=== PATIENT | male | born 1960 | race Caucasian/White ===

== ENCOUNTER 2019-08-09 11:45 | Emergency (ER) | payer SELFPAY ==
[2019-08-09 11:47] VITALS: BP 152/78; PULSE 70; RESP 20; TEMP 36.4; O2SAT 100; BMI 22.0
[2019-08-09] MEDS: 0.9% Normal Saline 1,000 ML 999 ML IV ×2 (12:23→13:32)
[2019-08-09] MEDS: Ondansetron 4 MG/2 ML Vial IV (12:23)
--- NOTE | 2019-08-09 12:31 | ED.VIS.GEN ---
History of Present Illness Chief Complaint: Nausea/Vomiting Informant: Patient Onset: Days - 4 Narrative: Patient states I have let myself go. By this he states that his hygiene and is cleanliness with food preparation etc. has been lacking because the world needs people who do tough jobs. He also states he is dropping the junkyard dog today. He then tells me that he has had vomiting and diarrhea since Thursday. Decreased p.o. because of the same. No fevers or rashes. Past Medical History - Allergies and Home Meds Allergies/Adverse Reactions: Allergies No Known Allergies Allergy (Verified 08/09/19 11:49) Primary Care Physician: Care Physician,No Primary [Primary Care Provider] - Smoking Status: Current every day smoker Review of Systems General: Denies: Chills, Fever, Sweats Eyes: Denies: Visual changes - bilaterally, Diplopia ENT: Denies: Rhinorrhea, Sore throat Cardiovascular: Denies: Chest pain, Palpitations Respiratory: Denies: Dyspnea, Cough, Dyspnea on exertion Gastrointestinal: Reports: Nausea, Vomiting, Diarrhea. Denies: Abdominal pain, Melena, Hematochezia Genitourinary: Denies: Dysuria, Hematuria, Frequency Musculoskeletal: Denies: Back pain, Extremity Pain Skin: Denies: Rash, Wounds Neurological: Denies: Headache, Weakness, Numbness Physical Exam Vital Signs/Narrative: Vital Signs Temp Pulse Resp BP Pulse Ox 08/09/19 11:47 97.6 F L 70 20 H 152/78 H 100 Inital Vital Signs reviewed: Yes General: Well nourished, Well developed, No Acute Distress Head: Normocephalic, Atraumatic Eyes: Perrl, EOMI ENT: Moist mucous membranes, No rhinorrhea Neck: Supple, Nontender Cardiovascular: Regular rate, Regular rhythm, No murmurs Respiratory: No distress, CTA bilaterally, Chest nontender Abdomen: Soft, Nontender, Nondistended, Normal bowel sounds Back: Nontender, Normal Inspection Extremities: Nontender, No edema Skin: Normal color, No rash Neurological: Alert, Oriented x3, Cranial nerves II-XII grossly intact, Normal Strength, Normal Sensation Psychological: Normal affect, Normal Mood Diagnostic/Tx/Re-eval - Medical Decision Making 2 L of IV fluids and Phenergan. He has been tolerating p.o. He will be discharged home with prescription for Zofran instructions for Imodium and instructions for oral hydration and rest. ED Disposition - Plan for ED Patient: Disposition: Home or Assisted Living Diagnosis: Gastroenteritis Instructions: VOMITING AND DIARRHEA, Nonspecific (Adult) Prescriptions: Ondansetron [Zofran Odt] 4 mg PO Q6H PRN PRN #20 tab PRN Reason: Nausea Prescription Printed Referrals: Archie Proctor MD [STAFF PHYSICIAN] - (as needed for primary care) Additional Instructions: I would recommend Imodium as needed for diarrhea. Oral hydration. Some of these viruses can cause symptoms for up to 2 weeks.
[2019-08-09 12:37] LABS: Absolute Lymphocyte Count 1.06 X10^3/uL (0.83-4.51); Absolute Neutrophil Count 6.1 X10^3/uL (2.0-7.7); Basophil# 0.03 X10^3/uL; Basophil% 0.4 % (0-1); Differential Indicated SCAN CRITERIA MET; Eosinophil# 0.11 X10^3/uL; Eosinophils% 1.4 % (0-5); Hematocrit 44.5 % (40-54); Hemoglobin 15.4 g/dL (13.0-16.5); Lymphocyte # 1.06 X10^3/ul (4.0); Lymphocyte % 13.2 % (19-41); Mean Corp Hgb Conc 34.6 g/dL (32-36); Mean Corpuscular Hgb 29.7 pg (27.0-32.0); Mean Corpuscular Volume 85.9 fL (80-94); Mean Platelet Vol. 9.5 fl (6.2-12.0); Monocyte# 0.67 X10^3/uL; Monocyte% 8.4 % (0-10); NRBC Flagged by Analyzer 0 % (0-5); Neutrophil # 6.12 X10^3/uL (2.7-7.7); Neutrophil % 76.2 % (47-70); POSITIVE MORPHOLOGY YES; Platelet Count 204 K/mm3 (150-450); RBC Distribution Width CV 13.2 % (11.6-14.6); RBC Distribution Width SD 41.3 fl (35.1-43.9); Red Blood Count 5.18 M/mm3 (4.6-6.2)
[2019-08-09 12:55] LABS: AST(SGOT) 22 U/L (15-37); Alanine Aminotransfer ALT/SGPT 24 U/L (16-61); Albumin, Serum 3.6 g/dL (3.2-5.0); Alkaline Phosphatase 88 U/L (45-117); Anion Gap 8 (5-15); BUN 24 mg/dL (7-18); Bilirubin, Direct 0.11 mg/dL (0.00-0.30); Calcium,Total 9.4 mg/dL (8.5-10.1); Chloride 101 mmol/L (98-107); Creatinine, Serum 0.96 mg/dL (0.70-1.30); EST Glomerular Filtration Rate 86 mL/min (>60); Est Glom Filt Rate - Afr Amer 104 mL/min (>60); Estimated Creatinine Clearance 78.98 ml/min; Globulin 3.6 g/dL (2.2-4.2); Glucose 133 mg/dL (74-106); Lipase 87 U/L (73-393); Potassium 3.7 mmol/L (3.5-5.1); Protein, Total 7.2 g/dL (6.4-8.2); Sodium Level 135 mmol/L (136-145)
[2019-08-09 14:32] VITALS: BP 150/71; PULSE 65; RESP 16; O2SAT 100
== END 2019-08-09 14:35 | disposition home or self-care (01) ==
PROVIDERS: Emergency Provider Emergency Medicine
DX: K52.9 Noninfective gastroenteritis and colitis, unspecified (principal); F17.200 Nicotine dependence, unspecified, uncomplicated
CPT/HCPCS: 80048; 80076; 83690; 85025; 96361; 96374; 99283; J7030; A4216; J2405

== ENCOUNTER 2020-04-08 04:34 | Emergency (ER) | payer SELFPAY ==
[2020-04-08 04:35] VITALS: BP 155/79; PULSE 94; RESP 18; TEMP 36.2; O2SAT 97; BMI 20.7
[2020-04-08] MEDS: Fluorescein 1 MG STRIP 1 STRIP OPHTHALMIC (04:56)
[2020-04-08] MEDS: Diphth,Pertuss(Acell),Tet Vac 0.5 ML Vial IM (04:57)
[2020-04-08] MEDS: Tetracaine 0.5% Ophthalmic Bottle OPHTHALMIC (04:57)
--- NOTE | 2020-04-08 04:58 | ED.DCSUM_ITS ---
- ER Visit Summary Date of Service: 04/08/20 Chief Complaint: Foreign body left eye History of Present Illness: The patient is a 59 M with no primary care physician or a Jose Yang. 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 He had a foreign body go into his left eye. He states he has pain is 4-10 when he closes in 1 out of 10 when he opens his eye. He denies any photophobia. He denies any change in his vision. He does wear glasses and contacts. He was not wearing a shield when he was welding. He denies any pain to his right eye. His tetanus shot is not up-to-date. Physical Examination: Vitals: Stable. Afebrile. General: Well-nourished and well-developed. Left eye: Upper eyelid was everted for the exam. There is no foreign material under this. There is 2 small metallic foreign bodies with rust rings. The first of these is on the junction of his cornea and sclera medially. It is at the level of his pupil. The second is at 2:00 and is not in the visual axis. There is fluorescein dye uptake surrounding these 2. There is no other corneal abrasion. There is diffuse conjunctival injection. Head: Normocephalic atraumatic. Neck: Supple, no lymphadenopathy. No JVD. Nontender. Cardiovascular: Regular rate and rhythm. No murmurs. Respiratory: No respiratory distress. Clear to auscultation bilaterally. Abdominal: Soft, nontender, nondistended, normal bowel sounds. No guarding, rebound, or peritoneal signs. Back: Nontender. Extremities: Nontender, no edema. Skin: Normal color, no rash. Neurologic: Alert and oriented ?3. Cranial nerves II through XII are intact. Normal strength and sensation. Psych: Normal affect. Emergency Department Course and Treatment: Patient had the foreign bodies removed with a Q-tip that had been moistened with tetracaine. He tolerated this well. There were residual rust rings. He refused removal of this. He had Cipro drops placed in his eye as he does wear contacts. Treatment Plan: Patient will be discharged with Cipro drops and instructed to follow-up with Dr. Martinez in 3 to 5 days for repeat exam and removal of rust ring. Return to the emergency department for any worsening symptoms. Disposition: To home in improved and stable condition. Impression: 1. Metallic foreign bodies with rust ring to left eye. This note was generated with [employer] dictation software. It may contain incorrect words, spelling, and punctuation that were not noted in review of the chart prior to signing ED Disposition - Plan for ED Patient: Instructions: ED Foreign Body Cornea W Rust Ring Referrals: Ish Martinez MD [STAFF PHYSICIAN] - 3-5 Days
[2020-04-08] MEDS: Ciprofloxacin 0.3% 2.5ml Bottle LEFT EYE (05:15)
== END 2020-04-08 05:16 | disposition home or self-care (01) ==
LOC: ED 05:08
PROVIDERS: Emergency Provider Emergency Medicine
DX: T15.92XA Foreign body on external eye, part unspecified, left eye, initial encounter (principal); F17.200 Nicotine dependence, unspecified, uncomplicated; X58.XXXA Exposure to other specified factors, initial encounter
CPT/HCPCS: 90471; 90715; 99283

== ENCOUNTER 2020-06-29 13:13 | Emergency (ER) | payer SELFPAY ==
[2020-06-29 13:14] VITALS: BP 135/86; PULSE 114; RESP 16; TEMP 36.4; O2SAT 99; BMI 19.8
--- NOTE | 2020-06-29 13:24 | ED.DCSUM_ITS ---
History of Present Illness Onset: Yesterday Narrative: 10-year-old male presents with complaint of foreign body in his left eye. He was grinding metal last night and not wearing eye protection. He felt minor discomfort in his left eye last night that worsened today with some tearing. No vision changes. He does not wear contacts. He can see a foreign body in his iris. <Mary Contreras - Last Filed: 06/29/20 13:56> <MinhJelani - Last Filed: 06/29/20 14:00> Chief Complaint: Eye Problem Past Medical History Smoking Status: Current every day smoker <Mary Contreras - Last Filed: 06/29/20 13:56> <MinhJelani - Last Filed: 06/29/20 14:00> - Allergies and Home Meds Allergies/Adverse Reactions: Allergies No Known Allergies Allergy (Verified 06/29/20 13:16) Primary Care Physician: Dexter Randall MD [STAFF PHYSICIAN] - Review of Systems General: Denies: Chills, Fever, Sweats Eyes: Denies: Visual changes - left, Visual changes - right, Blurred vision - left, Blurred vision - right, Diplopia ENT: Denies: Rhinorrhea, Sore throat Cardiovascular: Denies: Chest pain, Palpitations Respiratory: Denies: Dyspnea, Cough, Dyspnea on exertion Skin: Denies: Rash, Wounds Neurological: Denies: Headache, Weakness <Mary Contreras - Last Filed: 06/29/20 13:56> Physical Exam Vital Signs/Narrative: Vital Signs Temp Pulse Resp BP Pulse Ox 06/29/20 13:14 97.6 F L 114 H 16 135/86 H 99 General: Well nourished, Well developed, No Acute Distress Head: Normocephalic, Atraumatic Eyes: Perrl, EOMI, - - Foreign body at 12'oclock position of iris. No rust ring. No sceral injection or chemosis. No hyphema. PERRL, EOMI, no photophobia. ENT: Moist mucous membranes, No rhinorrhea Neck: Supple, Nontender Cardiovascular: Regular rate, Regular rhythm, No murmurs Respiratory: No distress, CTA bilaterally Extremities: No edema Skin: Normal color, No rash Neurological: Alert, Oriented x3, Cranial nerves II-XII grossly intact Psychological: Normal affect, Normal Mood <Mary Contreras - Last Filed: 06/29/20 13:56> Vital Signs/Narrative: Vital Signs Temp Pulse Resp BP Pulse Ox 06/29/20 13:57 16 06/29/20 13:14 97.6 F L 114 H 16 135/86 H 99 <Jelani Wilkinson - Last Filed: 06/29/20 14:00> Diagnostic/Tx/Re-eval - Medical Decision Making Presents with a metal foreign body in his left eye after grinding metal last night. He appears well nontoxic. Vital signs within normal limits. There is a clearly visible foreign body at the 12 o'clock position of the iris. Pupils equal round reactive to light, extraocular motion intact. No chemosis, hyphema, or scleral injection. Vision changes. Tetracaine was applied and q-tip removed small part of foreign body. 18-gauge needle removed the rest. There is a small residual rust ring. The patient does not want to try to remove it and states it is not bothering him. He has topical antibiotics at home from a previous foreign body was advised to use these drops 3 times daily. He was given ophthalmology referral and discharged home in stable condition. 1. Metallic foreign body with residual rust ring, left eye 2. Corneal abrasion, left eye <Mary Contreras - Last Filed: 06/29/20 13:56> - Medical Decision Making I supervised the PA and have performed my own pertinent history and physical. Results and treatment plan were discussed. HPI: Patient reports that last night he was grinding a sword and had taken off his safety glasses for short period time when he had a foreign body enter his left eye. He denies any change in his vision. He wears glasses for driving. He does not wear contacts. 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 PE: Vitals: Stable. Afebrile. General: Well-nourished and well-developed. Head: Normocephalic atraumatic. Left eye: Metallic foreign body at approximately 6:00 that is not in the visual axis while his pupil is small. There is a rust ring surrounding this. Neck: Supple, no lymphadenopathy. No JVD. Nontender. Cardiovascular: Regular rate and rhythm. No murmurs. Respiratory: No respiratory distress. Clear to auscultation bilaterally. Abdominal: Soft, nontender, nondistended, normal bowel sounds. No guarding, rebound, or peritoneal signs. Back: Nontender. Extremities: Nontender, no edema. Skin: Normal color, no rash. Neurologic: Alert and oriented ?3. Cranial nerves II through XII are intact. Normal strength and sensation. Psych: Normal affect. Emergency Department course: Patient had the foreign body removed with an 18- gauge needle. The majority of the rust ring was removed. There is approximately 30% still present. He has refused any further attempts at removing this. Treatment Plan: Patient reports that he has antibiotic ophthalmic drops at home from the last time he had this. He is instructed to use this 3 times a day for the next 3 days. Follow-up with Dr. Randall for removal of the rust ring. Return to the emergency department for any worsening symptoms. This note was generated with [employer] dictation software. It may contain incorrect words, spelling, and punctuation that were not noted in review of the chart prior to signing. <Jelani Wilkinson - Last Filed: 06/29/20 14:00> ED Disposition <Mary Contreras - Last Filed: 06/29/20 13:56> <Jelani Wilkinson - Last Filed: 06/29/20 14:00> - Plan for ED Patient: Disposition: Home or Assisted Living Diagnosis: Eye foreign body, Corneal rust ring of left eye Instructions: ED Corneal Abrasion, ED EYE FOREIGN BODY Corneal Referrals: Dexter Randall MD [STAFF PHYSICIAN] -
[2020-06-29] MEDS: Tetracaine 0.5% Ophthalmic Bottle 2 DRP LEFT EYE (13:46)
[2020-06-29 13:57] VITALS: RESP 16
== END 2020-06-29 13:59 | disposition home or self-care (01) ==
LOC: ED 13:36
PROVIDERS: Emergency Provider Physician Assistant
DX: T15.02XA Foreign body in cornea, left eye, initial encounter (principal); F17.200 Nicotine dependence, unspecified, uncomplicated; X58.XXXA Exposure to other specified factors, initial encounter
CPT/HCPCS: 99283

== ENCOUNTER 2021-01-17 22:01 | Emergency (ER) | payer SELFPAY ==
[2021-01-17 22:01] VITALS: BP 134/90; PULSE 128; RESP 18; TEMP 36.6; O2SAT 99; BMI 18.2
--- NOTE | 2021-01-17 22:19 | EDS_ITS ---
HPI History of Present Illness HPI Narrative: 60 -year-old [id number] male tetanus is up-to-date in the last year. States he was using a grinding wheel and a piece of equipment turned on and lacerated his right ulnar side of his wrist. He has mild tingling. Denies other injuries. Patient is right-hand dominant. Chief Complaint: Laceration Informant: patient Occured/Mechanism Mechanism/Context: Yes injury Onset/Context/Timing Onset: Today and Hours Context: Sudden Onset Timing: Continuous Quality of Pain: Aching Current Severity: Mild Maximum Severity: Mild Narrative Tetanus Immunization: <5 years Prior similar symptoms: No Recent Illness/Hospitalization: No PFSH PFSH Home Medications cephalexin 500 mg PO Q8H 5 Days #15 cap 01/18/21 [Rx Last Taken Unknown] Allergy/AdvReac Type Severity Reaction Status Date / Time No Known Allergies Allergy Verified 01/17/21 22:03 Social History Smoking Status: Current every day smoker tobacco type: cigarettes ROS ROS ED ROS Narrative Denies recent illness. Review of Systems ROS Unobtainable: Denies due to encephalopathy Constitutional Constitutional ED: Denies frequent falls Eyes Eyes: Denies change in vision ENT ENT ED: Denies ear pain or sore throat Cardiovascular Cardiovascular: Denies chest pain Respiratory/Chest Respiratory/Chest: Denies cough or dyspnea Gastrointestinal Gastrointestinal: Denies abdominal pain, diarrhea, nausea or vomiting Genitourinary Genitourinary ED: Denies dysuria Musculoskeletal Musculoskeletal: Denies myalgias Integumentary Denies rash Neurologic Neurologic: Denies headache(s) Psychiatric Psychiatric: Denies depression Endocrine Endocrinology: Denies polyuria Hematologic/Lymphatic Hematologic/Lymphatic: Denies easy bruising Allergic/Immunologic Allergic/Immunologic ED: Denies urticaria EXAM Physical Exam Narrative Exam Narrative: There has been no acute distress vital signs stable afebrile. Exam unremarkable except right ulnar side of his wrist dorsal medially there is a laceration involving the skin and subcu tissue. Dirty appearing wound. He has normal flexion-extension to the wrist. He can open and close all digits of the hand. He has normal touch sensation. There is no pulsatile bleeding. No obvious foreign body. Otherwise exam unremarkable. Const Vital Signs: 01/17/21 22:01 Temperature 97.9 F Temperature Source Temporal Pulse Rate 128 H Respiratory Rate 18 Blood Pressure 134/90 H Blood Pressure Mean 104 Pulse Ox 99 Oxygen Delivery Method Room Air HEENT Reports moist mucous membranes normocephalic and atraumatic; Negative for trauma or tenderness Eyes PERRL and EOMs intact bilaterally Neck full ROM and supple Chest Wall inspection of chest normal and palpation of chest normal Resp normal respiratory effort and clear to auscultation bilaterally Cardio regular rhythm and no murmurs Rate: tachycardic GI non-tender, non-distended and no masses Auscultation: normoactive bowel sounds Palpation: soft Back/Spine no CVA tenderness Extremity Extremity Narrative: Right dorsal medial laceration of the wrist. Involving the skin and subcu tissue. He has full flexion-extension of the wrist. He is able to open close the hand. Hand appears to be neurovascularly intact with normal cap refill and touch sensation specifically over the small finger and ring finger. Neuro oriented x3 Sensorium / Orientation: alert, oriented to person, oriented to place and oriented to time Psych mental status grossly normal Skin Rashes: no rashes MDM MDM MDM Narrative Medical decision making narrative: Patient with a right wrist laceration. Will need locally anesthetized, washed out explored and closed. X-rays being obt ained. Procedures Lacerations Right ulnar side wrist laceration: Length: 3.94 in Depth: Fascia Prep: Sterile Conditions and Shure-Clens Laceration repair: Irrigated, Lidocaine, Local and Wound explored Number of Sutures/Rhonda: 8 Suture Information: Ethilon and 4-0 Comment: Irregular laceration involving the skin and subcu tissue. Also some of the fascia. However he is full flexion extension of the right wrist. Distally he has normal sensation. He can open and close his hand. Wound was locally anesthetized with lidocaine. Cleaned with Shur-Clens. Washed with saline and irrigated with saline. Explored. Closed using 8 simple interrupted 4-0 Ethilon sutures. Proper hemostasis wound closure obtained. Patient was warned of scarring and wound care. Discharge Plan Triage Chief Complaint: Laceration ED Provider: Jevon Thapa Dx/Rx/DC Orders Clinical Impression: Laceration of right wrist Instructions: ED Laceration, Hand: All Closures Prescriptions: New cephalexin 500 mg capsule 500 mg PO Q8H 5 Days Qty: 15 RF: 0 Primary Care Provider: Care Physician,No Primary Referrals: Bryan Griffith MD [STAFF PHYSICIAN] - 10-14 Days suture removal Care Physician,No Primary [Primary Care Provider] - Activity Restrictions/Additional Instructions: Clean the wound twice daily with soap and water. Apply antibiotic ointment. Ice and elevate to decrease pain and swelling. Tylenol Motrin for pain. Watch for any signs of infection such as redness, fever, red streaks or pus is seen return. Stitches should come out in 10 to 14 days. There are [address] Keep the wound clean and dry. It was a deep complex wound. I am going to put you on antibiotic Keflex 3 times a day for the next 5 days to try to prevent infection. Disposition Disposition: Home, self care
--- NOTE | 2021-01-17 22:23 | RAD_ITS ---
STUDY: X-RAY - RIGHT WRIST REASON FOR EXAM: Male, 60 years old. trauma TECHNIQUE: 3 view(s) of the wrist were obtained. COMPARISON: None. FINDINGS: Impacted fracture distal radius, age indeterminate. Avulsion fractures of the ulna styloid appear remote. Normal radiocarpal articulation. Normal distal radioulnar articulation. Normal carpal bones. Normal carpal articulations. Normal carpometacarpal articulation of the thumb. Normal second through fifth carpometacarpal articulations. Normal visualized metacarpal bones. Soft tissue swelling and skin laceration ulnar aspect of the wrist. RAD/Wrist min 3 Views IMPRESSION: Fracture distal radius, age indeterminate. Remote avulsion fracture ulnar styloid. Laceration ulnar aspect of the wrist. Electronically Signed: Ede Terry MD at 22:51 EDT , Service support ,
[2021-01-17] MEDS: Lidocaine/Epi/Tetracaine 50 ML 1 APPLIC TOPICAL (22:41)
[2021-01-18] MEDS: Lidocaine 1% (20 ml mdv) 20 ML Vial 10 ML INFILT (00:03)
[2021-01-18] MEDS: Cephalexin 250 MG Capsule 500 MG PO (00:07)
[2021-01-18 00:10] VITALS: BP 128/62; PULSE 82; RESP 18; O2SAT 96
== END 2021-01-18 00:10 | disposition home or self-care (01) ==
PROVIDERS: Emergency Provider Emergency Medicine
DX: S61.511A Laceration without foreign body of right wrist, initial encounter (principal); F17.210 Nicotine dependence, cigarettes, uncomplicated; X58.XXXA Exposure to other specified factors, initial encounter
CPT/HCPCS: 12002; 73110; 99284

== ENCOUNTER 2021-01-19 00:26 | Emergency (ER) | payer SELFPAY ==
[2021-01-19 00:27] VITALS: BP 119/78; PULSE 91; RESP 16; TEMP 36.6; O2SAT 100; BMI 19.4
--- NOTE | 2021-01-19 01:37 | EX.ED.DYSGE1 ---
HPI History of Present Illness Chief Complaint: Foreign Body Narrative Narrative: 60-year-old male presenting with left eye pain. He feels like he may have had a foreign body in it so he stuck his thumbnail and there and gauze data. He denies any visual complaints. He states that he has foreign body sensation in his left eye. He does not wear contacts. PFSH PFSH Home Medications cephalexin 500 mg PO Q8H 5 Days #15 cap 01/18/21 [Rx Last Taken Unknown] erythromycin 1 applic LEFT EYE DAILY 5 Days #3.5 g 01/19/21 [Rx Last Taken Unknown] ketorolac 1 drp EACH EYE Q6H 3 Days #5 ml 01/19/21 [Rx Last Taken Unknown] Allergy/AdvReac Type Severity Reaction Status Date / Time No Known Allergies Allergy Verified 01/17/21 22:03 Social History Smoking Status: Current every day smoker tobacco type: cigarettes ROS ROS ED Constitutional Constitutional ED: Denies chills or fever(s) Eyes Eyes: Reports other Details: Left eye pain with foreign body sensation ; Denies blurry vision or change in vision ENT ENT ED: Denies ear pain or rhinorrhea Cardiovascular Cardiovascular: Denies chest pain Respiratory/Chest Respiratory/Chest: Denies cough or dyspnea Gastrointestinal Gastrointestinal: Denies abdominal pain, nausea or vomiting Genitourinary Genitourinary ED: Denies dysuria, hematuria or urinary frequency Musculoskeletal Musculoskeletal: Denies arthralgias or myalgias Integumentary Denies abscess or rash Neurologic Neurologic: Denies headache(s) or weakness EXAM Physical Exam Const Vital Signs: 01/19/21 00:27 Temperature 98 F Temperature Source Oral Pulse Rate 91 Respiratory Rate 16 Blood Pressure 119/78 Blood Pressure Mean 91 Pulse Ox 100 Oxygen Delivery Method Room Air Positive well nourished General Appearance ED: NAD HEENT Reports moist mucous membranes Negative for trauma Eyes PERRL and EOMs intact bilaterally Eyes Narrative: With floor seen there is visualized defect at the 3 o'clock position. This does not appear to be metal as the patient thinks. It appears to be soft tissue abrasion. Resp normal respiratory effort and clear to auscultation bilaterally Cardio regular rate and regular rhythm Extremity normal to inspection General Extremety ED: Yes tenderness Neuro oriented x3 and CN's II-XII intact bilaterally Sensorium / Orientation: alert Psych mental status grossly normal Skin no rashes or lesions noted and no wounds MDM MDM MDM Narrative Medical decision making narrative: Patient has corneal abrasion in the left eye at the 3 o'clock position. Multiple times I had to tell the patient to stop rubbing his eye and he kept sticking his fingernail and tissue in his eye. I counseled him that he is good to make his abrasion worse. He started on erythromycin and given ketorolac eyedrops. He is given follow-up with ophthalmology. Impression: Corneal abrasion left eye Discharge Plan Triage Chief Complaint: Foreign Body ED Provider: [facility] Dx/Rx/DC Orders Instructions: ED Corneal Abrasion Prescriptions: New erythromycin 5 mg/gram (0.5 %) ointment 1 applic LEFT EYE DAILY 5 Days Qty: 3.5 RF: 0 ketorolac 0.4 % drops 1 drp EACH EYE Q6H 3 Days Qty: 5 RF: 0 No Action cephalexin 500 mg capsule 500 mg PO Q8H 5 Days Qty: 15 RF: 0 Primary Care Provider: Care Physician,No Primary Referrals: Dillon Cobb MD [STAFF PHYSICIAN] - As soon as possible Care Physician,No Primary [Primary Care Provider] - Disposition Disposition: Home, self care Discharge Date/Time: 01/19/21 01:55
[2021-01-19] MEDS: Tetracaine 0.5% Ophthalmic Bottle 1 DRP LEFT EYE (01:54)
[2021-01-19] MEDS: Erythromycin Base 1 OPTH.TUBE 1 APPLIC LEFT EYE (01:55)
== END 2021-01-19 01:55 | disposition home or self-care (01) ==
PROVIDERS: Emergency Provider Student in an Organized Health Care Education/Training Program
DX: S05.02XA Injury of conjunctiva and corneal abrasion without foreign body, left eye, initial encounter (principal); F17.210 Nicotine dependence, cigarettes, uncomplicated; X58.XXXA Exposure to other specified factors, initial encounter
CPT/HCPCS: 99282

== ENCOUNTER 2021-01-31 10:38 | Emergency (ER) | payer SELFPAY ==
[2021-01-31 10:39] VITALS: BP 116/80; PULSE 102; RESP 16; TEMP 36.4; O2SAT 99; BMI 19.4
--- NOTE | 2021-01-31 10:57 | EX.ED.DYSGE1 ---
HPI History of Present Illness Chief Complaint: Suture Remv Narrative Narrative: Patient is a 60-year-old male who presents to the emergency department for suture removal. He states that he injured his hand 2 weeks ago with an angle graphite grinder. 8 sutures were placed at that time. He states he has been changing the dressing and keeping the area clean. He states he does have some numbness over the area but otherwise has good function of the hand. He denies any signs of infection. No systemic symptoms. PFSH PFSH Home Medications cephalexin 500 mg PO Q8H 5 Days #15 cap 01/18/21 [Rx Last Taken Unknown] erythromycin 1 applic LEFT EYE DAILY 5 Days #3.5 g 01/19/21 [Rx Last Taken Unknown] ketorolac 1 drp EACH EYE Q6H 3 Days #5 ml 01/19/21 [Rx Last Taken Unknown] Allergy/AdvReac Type Severity Reaction Status Date / Time No Known Allergies Allergy Verified 01/31/21 10:41 Social History Smoking Status: Current every day smoker tobacco type: cigarettes ROS ROS ED Constitutional Constitutional ED: Denies chills or fever(s) ENT ENT ED: Denies rhinorrhea Cardiovascular Cardiovascular: Denies chest pain Respiratory/Chest Respiratory/Chest: Denies cough or dyspnea Gastrointestinal Gastrointestinal: Denies nausea or vomiting Musculoskeletal Musculoskeletal: Denies myalgias Integumentary Denies rash Neurologic Neurologic: Reports paresthesias; Denies weakness EXAM Physical Exam Const Vital Signs: 01/31/21 10:39 Temperature 97.6 F L Temperature Source Temporal Pulse Rate 102 H Respiratory Rate 16 Blood Pressure 116/80 Blood Pressure Mean 92 Pulse Ox 99 Oxygen Delivery Method Room Air Positive well nourished and well developed General Appearance ED: well developed HEENT Negative for trauma Eyes PERRL Neck supple Chest Wall inspection of chest normal Resp normal respiratory effort Cardio regular rate GI non-distended Extremity Extremity Narrative: 5 out of 5 muscle strength throughout. Good insurance defense paralegal strength. Neurovascular intact. General Extremety ED: Negative for edema or tenderness General Extremity: Negative for edema Skin Skin Narrative: Laceration over right wrist appears well-healed. [address] Evidence of infection. MDM MDM MDM Narrative Medical decision making narrative: Patient presents the ED for suture removal. No evidence of infection on exam. The wound is well-healed. 8 sutures were removed. He tolerated this well without any apparent complications. He is discharged home in stable condition. Discharge Plan Triage Chief Complaint: Suture Remv ED Provider: Luis Angela Dx/Rx/DC Orders Clinical Impression: Encounter for removal of sutures Instructions: ED Stitches/Staple Removal No ... Prescriptions: No Action cephalexin 500 mg capsule 500 mg PO Q8H 5 Days Qty: 15 RF: 0 erythromycin 5 mg/gram (0.5 %) ointment 1 applic LEFT EYE DAILY 5 Days Qty: 3.5 RF: 0 ketorolac 0.4 % drops 1 drp EACH EYE Q6H 3 Days Qty: 5 RF: 0 Primary Care Provider: Care Physician,No Primary Referrals: Care Physician,No Primary [Primary Care Provider] - As Needed Disposition Disposition: Home, Self Care
[2021-01-31 11:41] VITALS: RESP 16
--- NOTE | 2021-01-31 11:43 | ED.RN ---
pt standing in doorway stating I am waiting for my paperwork, and I have been waiting for over half an hour for someone to come in and get me out of here. And it's time now that I just have to go. this nurse apologized for the wait, this nurse informed pt that the ed nurses have been busy with a critical patient. pt replied i understand that but no one around here can take the 10 seconds to come in and get me out of here. this nurse again informed the pt that all the ed nurses have been tied up with more critical patients. pt off unit via ambulation steady gait. this nurse was unable to review pt's medical history with the pt or review medications. this nurse was unable to assess pt's wound.required duggan in documentation were pulled from responses on prior visit.
== END 2021-01-31 11:51 | disposition home or self-care (01) ==
LOC: ED 10:58
PROVIDERS: Emergency Provider Emergency Medicine
DX: Z48.02 Encounter for removal of sutures (principal); F17.210 Nicotine dependence, cigarettes, uncomplicated
CPT/HCPCS: 99281

== ENCOUNTER 2021-04-14 01:29 | Emergency (ER) | payer SELFPAY ==
[2021-04-14 01:30] VITALS: BP 166/81; PULSE 77; RESP 20; TEMP 36.7; BMI 18.8
[2021-04-14] MEDS: 0.9% Normal Saline 1,000 ML 999 ML IV (02:06)
[2021-04-14] MEDS: Famotidine 200 MG/20 ML MDV 20 MG in 0.9% Normal Saline (Pres. free 8 ML 300 MG IV (02:09)
[2021-04-14] MEDS: Ondansetron 4 MG/2 ML Vial IV (02:09)
[2021-04-14 02:14] LABS: Absolute Neutrophil Count 8.5 X10^3/uL (2.0-7.7); Basophil# 0.07 X10^3/uL; Basophil% 0.6 % (0-1); Hematocrit 43.9 % (40-54); Hemoglobin 15.5 g/dL (13.0-16.5); Lymphocyte % 19.3 % (19-41); Mean Corp Hgb Conc 35.3 g/dL (32-36); Mean Corpuscular Hgb 30.6 pg (27.0-32.0); Mean Corpuscular Volume 86.6 fL (80-94); Mean Platelet Vol. 9.4 fl (6.2-12.0); Monocyte# 0.97 X10^3/uL; Monocyte% 8.2 % (0-10); NRBC Flagged by Analyzer 0 % (0-5); Neutrophil # 8.52 X10^3/uL (2.7-7.7); Neutrophil % 71.6 % (47-70); Platelet Count 303 K/mm3 (150-450); RBC Distribution Width CV 13.9 % (11.6-14.6); RBC Distribution Width SD 43.8 fl (35.1-43.9); Red Blood Count 5.07 M/mm3 (4.6-6.2); White Blood Count 11.9 K/mm3 (4.4-11.0)
[2021-04-14 02:27] LABS: AST(SGOT) 20 U/L (15-37); Alanine Aminotransfer ALT/SGPT 24 U/L (16-61); Albumin, Serum 3.8 g/dL (3.2-5.0); Alkaline Phosphatase 87 U/L (45-117); Anion Gap 13 (5-15); BUN 25 mg/dL (7-18); BUN/Creat Ratio 26.6 RATIO (10-20); Bilirubin, Direct 0.14 mg/dL (0.00-0.30); Calcium,Total 9.8 mg/dL (8.5-10.1); Chloride 94 mmol/L (98-107); Creatinine, Serum 0.94 mg/dL (0.70-1.30); EST Glomerular Filtration Rate 87 mL/min (>60); Est Glom Filt Rate - Afr Amer 106 mL/min (>60); Estimated Creatinine Clearance 68.21 ml/min; Globulin 3.8 g/dL (2.2-4.2); Glucose 131 mg/dL (74-106); Lipase 176 U/L (73-393); Potassium 3.2 mmol/L (3.5-5.1); Protein, Total 7.6 g/dL (6.4-8.2); Sodium Level 135 mmol/L (136-145)
[2021-04-14 02:42] VITALS: BP 160/81; PULSE 75; RESP 20
[2021-04-14 04:00] VITALS: BP 138/76; PULSE 72; RESP 18; O2SAT 99
--- NOTE | 2021-04-14 04:23 | EX.ED.DYSGE1 ---
HPI History of Present Illness Chief Complaint: Nausea/Vomiting Narrative Narrative: Patient reports he is at 3 days of nausea and vomiting. He denies any abdominal pain associated with this or diarrhea. He denies any recent sick contacts. He states he has not been able to keep any type of food or fluid down and is worried about dehydration based on his persistent symptoms and therefore comes in for evaluation [facility] Medical History Peripheral arterial disease Home Medications cephalexin 500 mg PO Q8H 5 Days #15 cap 01/18/21 [Rx Last Taken Unknown] erythromycin 1 applic LEFT EYE DAILY 5 Days #3.5 g 01/19/21 [Rx Last Taken Unknown] ketorolac 1 drp EACH EYE Q6H 3 Days #5 ml 01/19/21 [Rx Last Taken Unknown] famotidine [Pepcid] 20 mg PO BID #60 tab 04/14/21 [Rx Last Taken Unknown] ondansetron 4 mg PO Q8H PRN #21 tab 04/14/21 [Rx Last Taken Unknown] Allergy/AdvReac Type Severity Reaction Status Date / Time No Known Allergies Allergy Verified 01/31/21 10:41 Social History Smoking Status: Current every day smoker tobacco type: cigarettes ROS ROS ED Constitutional Constitutional ED: Denies chills or fever(s) ENT ENT ED: Reports sore throat Cardiovascular Cardiovascular: Denies chest pain Respiratory/Chest Respiratory/Chest: Denies cough or dyspnea Gastrointestinal Gastrointestinal: Reports nausea and vomiting; Denies abdominal pain or diarrhea Genitourinary Genitourinary ED: Denies dysuria Musculoskeletal Musculoskeletal: Reports myalgias Integumentary Denies rash Neurologic Neurologic: Denies headache(s) Hematologic/Lymphatic Hematologic/Lymphatic: Denies easy bleeding or easy bruising EXAM Physical Exam Const Vital Signs: 04/14/21 01:30 04/14/21 02:42 Temperature 98.1 F Temperature Source Oral Pulse Rate 77 75 Respiratory Rate 20 H 20 H Blood Pressure 166/81 H 160/81 H Blood Pressure Mean 109 107 Positive well nourished and well developed General Appearance ED: well developed HEENT HEENT Narrative: Mucous membranes are dry and tacky Eyes PERRL and EOMs intact bilaterally Neck supple Neck Narrative: No crepitance noted Resp normal respiratory effort and clear to auscultation bilaterally Cardio regular rate and regular rhythm GI non-tender and non-distended GI Narrative: Bowel sounds are hyperactive. No voluntary guarding or rigidity no pulsatile mass Palpation: soft Extremity normal to inspection Neuro oriented x3 and CN's II-XII intact bilaterally Sensorium / Orientation: alert Psych mental status grossly normal Skin no rashes or lesions noted Skin Narrative: Skin turgor is increased MDM MDM MDM Narrative Medical decision making narrative: Patient afebrile with a nonsurgical abdomen. His history and exam is consistent with mild dehydration. Secondary to this I elected to perform basic laboratory studies. Labs did show changes consistent with mild dehydration but no signs of acute kidney injury secondary to this or signs of acute pancreatitis. Patient was given IV fluids IV Zofran and Pepcid and on reevaluation reported feeling much better. He also had no further episodes of vomiting. On reevaluation his abdomen also remained soft and nonsurgical still. Therefore at this time I feel patient has a viral stomach infection and as symptoms are improving with symptomatic medications he is safe for discharge Lab Data Labs: Laboratory Results - last 24 hr 04/14/21 04/14/21 01:45 01:45 WBC 11.9 H RBC 5.07 Hgb 15.5 Hct 43.9 MCV 86.6 MCH 30.6 MCHC 35.3 RDW Std Deviation 43.8 RDW Coeff of Danny 13.9 Plt Count 303 MPV 9.4 Immature Gran % (Auto) 0.300 Neut % (Auto) 71.6 H Lymph % (Auto) 19.3 [place] % (Auto) 8.2 Eos % (Auto) 0.0 Baso % (Auto) 0.6 Absolute Neuts (auto) 8.5 H Absolute Lymphs (auto) 2.30 Nucleated RBC % 0 Sodium 135 L Potassium 3.2 L Chloride 94 L Carbon Dioxide 28.0 Anion Gap 13 BUN 25 H Creatinine 0.94 Estim Creat Clear Calc 68.21 Est GFR (MDRD) Af Amer 106 Est GFR (MDRD) Non-Af 87 BUN/Creatinine Ratio 26.6 H Glucose 131 H Calcium 9.8 Total Bilirubin 0.60 Direct Bilirubin 0.14 AST 20 ALT 24 Alkaline Phosphatase 87 Total Protein 7.6 Albumin 3.8 Globulin 3.8 Lipase 176 Discharge Plan Triage Chief Complaint: Nausea/Vomiting ED Provider: Rodney Perkins Dx/Rx/DC Orders Clinical Impression: Nausea & vomiting, Dehydration Instructions: ED Diet for Vomiting or ..., ED Gastroenteritis, Viral (Adult) Prescriptions: New ondansetron 4 mg tablet,disintegrating 4 mg PO Q8H PRN (Reason: nausea and vomiting) Qty: 21 RF: 0 famotidine [Pepcid] 20 mg tablet 20 mg PO BID Qty: 60 RF: 0 No Action cephalexin 500 mg capsule 500 mg PO Q8H 5 Days Qty: 15 RF: 0 erythromycin 5 mg/gram (0.5 %) ointment 1 applic LEFT EYE DAILY 5 Days Qty: 3.5 RF: 0 ketorolac 0.4 % drops 1 drp EACH EYE Q6H 3 Days Qty: 5 RF: 0 Primary Care Provider: Care Physician,No Primary Referrals: Mila Leblanc DO [STAFF PHYSICIAN] - 3-5 Days if not improving Care Physician,No Primary [Primary Care Provider] - Disposition Disposition: Home, Self Care
[2021-04-14 04:40] VITALS: BP 139/72; PULSE 83; RESP 16; O2SAT 95
== END 2021-04-14 04:40 | disposition home or self-care (01) ==
PROVIDERS: Emergency Provider Emergency Medicine
DX: R11.2 Nausea with vomiting, unspecified (principal); E86.0 Dehydration; F17.210 Nicotine dependence, cigarettes, uncomplicated
CPT/HCPCS: 80048; 80076; 83690; 85025; 96374; 99283; A4216; J2405; J3490

== ENCOUNTER 2021-04-15 06:12 | Emergency (ER) | payer SELFPAY ==
[2021-04-15 06:13] VITALS: BP 171/97; PULSE 75; RESP 16; TEMP 36.1; O2SAT 99
--- NOTE | 2021-04-15 07:05 | RAD_ITS ---
STUDY: X-RAY - CERVICAL SPINE REASON FOR EXAM: Male, 60 years old. Worsening pain; injury 4 years ago TECHNIQUE: AP, lateral, and odontoid radiographic view(s) of the cervical spine were obtained. COMPARISON: None FINDINGS: Normal anterior atlantoaxial articulation. Normal odontoid process. Normal cervical lordosis. Mild compression deformity of the C5 vertebral body. Mid to lower cervical spine endplate disease. Mid to lower cervical spine disc space loss. Normal visualized intervertebral neuroforamina. The soft tissue structures are unremarkable. No finding of acute cervical spine fracture. RAD/Cerv Spine 2 or 3 Views IMPRESSION: Old C5 vertebral body mild compression deformity. Mid to lower cervical spine degenerative disease. No acute abnormal finding. Electronically Signed: Jose Connolly MD at 7:40 EDT Tel , Service support ,
--- NOTE | 2021-04-15 07:06 | EX.ED.DYSGE1 ---
HPI History of Present Illness Chief Complaint: Other, Pain/Inj Informant: patient Onset/Context/Timing Onset: - (Acute on chronic) Context: Gradual Onset Current Severity: Mild Maximum Severity: Moderate Narrative Narrative: Patient present secondary concerns for neck pain. He states he is had neck pain for quite some time and has had 2 significant injuries. He states of the past 4 days has had increasing right-sided neck pain and was concerned. He states he initially had a 40 foot fall when he was 27 years old. He broke both wrists but does not believe anyone ever looked at his neck. 4 years ago he tried to pole vault and fell landing on his back. He states when he came to he could not move the right side of his body. It eventually improved and he was never seen and evaluated. He does report intermittent paresthesias to both arms. This has been ongoing for quite some time. [facility] Medical History Peripheral arterial disease Home Medications famotidine [Pepcid] 20 mg PO BID #60 tab 04/14/21 [Rx Last Taken Unknown] ondansetron 4 mg PO Q8H PRN #21 tab 04/14/21 [Rx Last Taken Unknown] atorvastatin 20 mg PO DAILY 04/15/21 [History Last Taken Unknown] cilostazol 100 mg PO BID 04/15/21 [History Last Taken Unknown] Allergy/AdvReac Type Severity Reaction Status Date / Time No Known Allergies Allergy Verified 04/15/21 06:16 Social History Smoking Status: Current every day smoker tobacco type: cigarettes ROS ROS ED Constitutional Constitutional ED: Denies chills or fever(s) Eyes Eyes: Denies change in vision ENT ENT ED: Denies sore throat Cardiovascular Cardiovascular: Denies chest pain Respiratory/Chest Respiratory/Chest: Denies cough or dyspnea Gastrointestinal Gastrointestinal: Denies abdominal pain, diarrhea, nausea or vomiting Genitourinary Genitourinary ED: Denies dysuria Musculoskeletal Musculoskeletal: Reports neck pain; Denies back pain Integumentary Denies rash Neurologic Neurologic: Reports paresthesias; Denies headache(s) or weakness Psychiatric Psychiatric: Reports anxiety Allergic/Immunologic Allergic/Immunologic ED: Denies urticaria EXAM Physical Exam Const Vital Signs: 04/15/21 06:13 Temperature 96.9 F L Temperature Source Temporal Pulse Rate 75 Respiratory Rate 16 Blood Pressure 171/97 H Blood Pressure Mean 121 Pulse Ox 99 Oxygen Delivery Method Room Air Positive well nourished and well developed General Appearance ED: well developed HEENT Reports normocephalic and head/scalp atraumatic Eyes PERRL and EOMs intact bilaterally Neck supple Neck Narrative: No reproducible tenderness to palpation. Chest Wall inspection of chest normal and palpation of chest normal Resp normal respiratory effort and clear to auscultation bilaterally Cardio regular rate and regular rhythm GI normal to inspection, nondistended, normoactive bowel sounds Palpation: soft Extremity normal to inspection Neuro oriented x3 and no sensory deficits noted Sensorium / Orientation: alert Motor Exam: strength 5/5 throughout Psych mental status grossly normal Skin no rashes or lesions noted MDM MDM MDM Narrative Medical decision making narrative: C-spine x-rays ordered. Treatment and Re-Evaluation Comments:: Per my interpretation C-spine x-rays reveal mild arthritic changes. Normal alignment. No evidence of obvious healed prior fracture. Test results discussed with the patient. He will be referred to spine for follow-up as needed. Discharge Plan Triage Chief Complaint: Other, Pain/Inj ED Provider: Nette Porter Dx/Rx/DC Orders Clinical Impression: Acute neck pain Instructions: ED Neck Pain Prescriptions: No Action ondansetron 4 mg tablet,disintegrating 4 mg PO Q8H PRN (Reason: nausea and vomiting) Qty: 21 RF: 0 famotidine [Pepcid] 20 mg tablet 20 mg PO BID Qty: 60 RF: 0 cilostazol 100 mg tablet 100 mg PO BID RF: 0 atorvastatin 20 mg tablet 20 mg PO DAILY RF: 0 Primary Care Provider: Care Physician,No Primary Referrals: Reed Blood DO [STAFF PHYSICIAN] - As Needed Care Physician,No Primary [Primary Care Provider] - Disposition Disposition: Home, Self Care
[2021-04-15] MEDS: Lidocaine 5% Patch 1 PATCH TOPICAL (07:54)
== END 2021-04-15 07:58 | disposition home or self-care (01) ==
PROVIDERS: Emergency Provider Emergency Medicine
DX: M54.2 Cervicalgia (principal); F17.210 Nicotine dependence, cigarettes, uncomplicated; I73.9 Peripheral vascular disease, unspecified; Z79.899 Other long term (current) drug therapy
CPT/HCPCS: 72040; 99283

== ENCOUNTER → 2022-01-14 | Outpatient (CLI) | payer MEDICAID, SELFPAY ==
[2022-01-14 11:40] LABS: Absolute Lymphocyte Count 3.25 X10^3/uL (0.83-4.51); Absolute Neutrophil Count 5.8 X10^3/uL (2.0-7.7); Basophil# 0.07 X10^3/uL; Basophil% 0.7 % (0-1); Eosinophil# 0.14 X10^3/uL; Eosinophils% 1.4 % (0-5); Lymphocyte # 3.25 X10^3/ul (0.83-4.51); Lymphocyte % 31.4 % (19-41); Mean Corp Hgb Conc 34.1 g/dL (32-36); Mean Corpuscular Hgb 31.4 pg (27.0-32.0); Mean Corpuscular Volume 91.9 fL (80-94); Mean Platelet Vol. 9.2 fl (6.2-12.0); Monocyte# 1.03 X10^3/uL; NRBC Flagged by Analyzer 0 % (0-5); Neutrophil # 5.82 X10^3/uL (2.7-7.7); Neutrophil % 56.1 % (47-70); Platelet Count 271 K/mm3 (150-450); RBC Distribution Width CV 14.9 % (11.6-14.6); RBC Distribution Width SD 50.9 fl (35.1-43.9); Red Blood Count 4.46 M/mm3 (4.6-6.2); White Blood Count 10.4 K/mm3 (4.4-11.0)
[2022-01-14 12:20] LABS: ALB/GLOB Ratio 1.1 RATIO (0.9-2.4); AST(SGOT) 11 U/L (15-37); Alanine Aminotransfer ALT/SGPT 21 U/L (16-61); Albumin, Serum 3.6 g/dL (3.2-5.0); Alkaline Phosphatase 85 U/L (45-117); Anion Gap 5 (5-15); BUN 19 mg/dL (7-18); Calcium,Total 9.5 mg/dL (8.5-10.1); Chloride 107 mmol/L (98-107); Cholesterol 182 mg/dL (200); Creatinine, Serum 0.82 mg/dL (0.70-1.30); EST Glomerular Filtration Rate 101 mL/min (>60); Est Glom Filt Rate - Afr Amer 123 mL/min (>60); Globulin 3.4 g/dL (2.2-4.2); Glucose 95 mg/dL (74-106); High Density Lipoprotein 59 mg/dL; Potassium 3.9 mmol/L (3.5-5.1); Sodium Level 140 mmol/L (136-145); Thyroid Stim Hormone (TSH) 0.34 uIU/mL (0.358-3.74); Triglycerides 101 mg/dL; Very Low Density Lipoprotein 20 mg/dL (5-40)
[2022-01-14 12:42] LABS: Vitamin D,25 Hydroxy 27.3 ng/mL
[2022-01-14 12:46] LABS: Hemoglobin A1c 5.5 % (3.8-5.6)
== END | disposition home or self-care (01) ==
LOC: LAB 10:45
PROVIDERS: Referring Provider Nurse Practitioner Adult Health; Visit Provider Nurse Practitioner Adult Health
DX: I73.9 Peripheral vascular disease, unspecified (principal)
CPT/HCPCS: 36415; 80053; 80061; 82306; 83036; 84443; 85025

== ENCOUNTER → 2022-01-21 | Outpatient (CLI) | payer MEDICAID, SELFPAY ==
[2022-01-21 15:27] LABS: Free T3 2.7 pg/mL (2.18-3.98); T4 Free Direct 0.81 ng/dL (0.76-1.46); Thyroid Stim Hormone (TSH) 0.89 uIU/mL (0.358-3.74)
[2022-01-23 15:40] LABS: Thyroid Peroxidase AB < 8 IU/mL (0-34)
== END | disposition home or self-care (01) ==
PROVIDERS: Visit Provider Nurse Practitioner Adult Health
DX: R94.6 Abnormal results of thyroid function studies (principal); Z12.5 Encounter for screening for malignant neoplasm of prostate
CPT/HCPCS: 84153; 36415; 84439; 84443; 84481; 86376; G0103

== ENCOUNTER → 2022-06-11 | Outpatient (CLI) | payer OTHER, MEDICAID, SELFPAY ==
--- NOTE | 2022-06-11 12:53 | CT_ITS ---
STUDY: CTA OF THE ABDOMINAL AORTA AND BILATERAL LOWER EXTREMITIES REASON FOR EXAM: Male, 62 years old. CLAUDICATION. Lower extremity numbness. RADIATION DOSAGE (If Supplied By Facility): CTDIvol = ( 9.22 ) mGy, DLP = ( 925.34 ) mGycm TECHNIQUE: Axial CT angiography multi-detector data acquisition was obtained from the dome of the liver to the level of the ankles following intravenous administration of IV 100mL Isovue-370. Axial images and MIP images were reconstructed from the axial data set. Post-processing of the angiographic images was performed, with multiplanar reformation and 3D reconstruction. Individualized dose optimization techniques were used for this CT. TECHNICAL QUALITY: Good COMPARISON: None. Descriptors of Narrowing: None (0%) Mild (< 50%) Moderate (50-70%) Severe (70-90%) Subtotal/Total Occlusion (90-100%) Non-Evaluable (technically non-diagnostic FINDINGS: Diffuse fatty infiltration of the liver. Large amount of fecal material is seen in the colon. Sigmoid diverticulosis. Prostatic enlargement measuring 4.1 cm x 5.1 cm. Prostatic calcification. Abdominal aorta: Atherosclerotic plaque formation of the abdominal aorta. There is mural thrombus in the abdominal aorta just distal to the origin of the renal arteries. There is minimal dilatation of the abdominal aorta at that level measuring 2.3 cm in transverse dimension. Celiac and superior mesenteric arteries: Minimal nonstenotic plaque at the origin of the celiac artery. Inferior mesenteric artery: Not seen. Right renal artery(arteries): No demonstrated narrowing. Left renal artery(arteries): Minimal plaque at the origin of the left renal artery. Right common iliac artery: Extensive plaque at the level of the right common iliac artery. There is occlusion. There is reconstruction of the distal portion of the external iliac artery and internal iliac artery. Right external iliac artery: No demonstrated narrowing. Right internal iliac artery: No demonstrated narrowing. Left common iliac artery: Extensive calcific plaque with focal areas of narrowing although the vessels patent. Left external iliac artery: No demonstrated narrowing. Left internal iliac artery: No demonstrated narrowing. RIGHT LOWER EXTREMITY Right common femoral artery: No demonstrated narrowing. Right profundus femoris: No demonstrated narrowing. Right superficial femoral: No demonstrated narrowing. Right popliteal artery: No demonstrated narrowing. Right tibioperoneal trunk: No demonstrated narrowing. Right anterior tibial artery: No demonstrated narrowing. Right posterior tibial artery: No demonstrated narrowing. Right peroneal artery: No demonstrated narrowing. LEFT LOWER EXTREMITY Left common femoral artery: No demonstrated narrowing. Left profundus femoris: No demonstrated narrowing. Left superficial femoral: Mild stenotic lesion seen in the midportion of the superficial femoral artery. Left popliteal artery: No demonstrated narrowing. Left tibioperoneal trunk: No demonstrated narrowing. Left anterior tibial artery: No demonstrated narrowing. Left posterior tibial artery: No demonstrated narrowing. Left peroneal artery: No demonstrated narrowing. 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 Minimally stenotic calcific plaques involving the left common iliac artery. Electronically Signed: Semaj Kidd MD at 15:23 EST ,
[2022-06-13 07:31] LABS: CREATININE FINGERSTICK < 0.9 mg/dL (0.70-1.30); EGFR FINGERSTICK > 60 mL/min (>60)
== END | disposition home or self-care (01) ==
LOC: CT 12:53
DX: I73.9 Peripheral vascular disease, unspecified (principal)
CPT/HCPCS: 75635; Q9967

== ENCOUNTER → 2022-07-11 | Outpatient (CLI) | payer OTHER, MEDICAID, SELFPAY ==
[2022-07-11 16:06] LABS: Absolute Lymphocyte Count 3.38 X10^3/uL (0.83-4.51); Absolute Neutrophil Count 5.3 X10^3/uL (2.0-7.7); Eosinophil# 0.81 X10^3/uL; Eosinophils% 7.8 % (0-5); Hematocrit 41.7 % (40-54); Hemoglobin 13.8 g/dL (13.0-16.5); Lymphocyte # 3.38 X10^3/ul (0.83-4.51); Lymphocyte % 32.3 % (19-41); Mean Corp Hgb Conc 33.1 g/dL (32-36); Mean Corpuscular Hgb 30.3 pg (27.0-32.0); Mean Corpuscular Volume 91.6 fL (80-94); Mean Platelet Vol. 8.8 fl (6.2-12.0); Monocyte# 0.86 X10^3/uL; Monocyte% 8.2 % (0-10); NRBC Flagged by Analyzer 0 % (0-5); Neutrophil # 5.28 X10^3/uL (2.7-7.7); Neutrophil % 50.5 % (47-70); Platelet Count 328 K/mm3 (150-450); RBC Distribution Width CV 14.2 % (11.6-14.6); RBC Distribution Width SD 48.2 fl (35.1-43.9); Red Blood Count 4.55 M/mm3 (4.6-6.2); White Blood Count 10.5 K/mm3 (4.4-11.0)
[2022-07-11 16:19] LABS: Erythrocyte Sedimentation Rate 13 mm/hr (0-20)
[2022-07-11 20:11] LABS: ALB/GLOB Ratio 1.4 RATIO (0.9-2.4); AST(SGOT) 13 U/L (15-37); Alanine Aminotransfer ALT/SGPT 20 U/L (16-61); Albumin, Serum 4.2 g/dL (3.2-5.0); Alkaline Phosphatase 105 U/L (45-117); Anion Gap 3 (5-15); BUN 17 mg/dL (7-18); BUN/Creat Ratio 22.2 RATIO (10-20); CRP < 2.90 mg/L (0.0-3.0); Calcium,Total 9.9 mg/dL (8.5-10.1); Chloride 107 mmol/L (98-107); Creatinine, Serum 0.76 mg/dL (0.70-1.30); EST Glomerular Filtration Rate 110 mL/min (>60); Est Glom Filt Rate - Afr Amer 133 mL/min (>60); Globulin 3.1 g/dL (2.2-4.2); Glucose 98 mg/dL (74-106); LDH 162 U/L (87-241); Potassium 3.9 mmol/L (3.5-5.1); Protein, Total 7.3 g/dL (6.4-8.2); Sodium Level 139 mmol/L (136-145)
[2022-07-14 16:08] LABS: Anti-Centromere B Ab <0.2 AI (0.0-0.9); Anti-Chromatin <0.2 AI (0.0-0.9); Anti-Jo <0.2 AI (0.0-0.9); Anti-Scleroderma-70 AB <0.2 AI (0.0-0.9); Endomysial Antibody IgA Negative (Negative); RNP Ab 0.3 AI (0.0-0.9); SJOGREN'S Anti-SS-A test < 0.2 AI (0.0-0.9); SJOGREN'S Anti-SS-B test < 0.2 AI (0.0-0.9); Smith Ab <0.2 AI (0.0-0.9)
[2022-07-15 16:16] LABS: Immunoglobulin A 139 mg/dL (90-386); t-Transglutaminase IgA <2 U/mL (0-3)
[2022-07-15 16:17] LABS: Anti-Mitochondrial AB <20.0 Units (0.0-20.0); Anti-dsDNA Ab <1 IU/mL (0-9)
[2022-07-17 16:09] LABS: Alpha-1-Globulins 0.3 g/dL (0.0-0.4); Alpha-2-Globulins 0.9 g/dL (0.4-1.0); Cytoplasmic Ab (C-ANCA) <1:20 titer (Neg:<1:20); Gamma Globulin 0.7 g/dL (0.4-1.8); HEPATITIS B SURFACE AG Negative (Negative); Hep C Antibodies <0.1 s/co ratio (0.0-0.9); Hepatitis A IgM Antibody Negative (Negative); Hepatitis B Core AB IgM Negative (Negative); Immunoglobulin A 133 mg/dL (90-386); Immunoglobulin G 807 mg/dL (603-1613); Immunoglobulin M 75 mg/dL (20-172)
[2022-07-18 10:58] LABS: Anti-Smooth Muscle ABS 4 Units (0-19); Immunoglobulin E 186 IU/mL (6-495); Perinuclear Ab (P-ANCA) <1:20 titer (Neg:<1:20)
== END | disposition home or self-care (01) ==
PROVIDERS: PCP Family Medicine; Visit Provider Internal Medicine Gastroenterology
DX: R19.7 Diarrhea, unspecified (principal)
CPT/HCPCS: 36415; 80053; 80074; 82784; 82785; 83516; 83615; 84165; 85025; 85652; 86140; 86225; 86235; 86255; 86256; 86334

== ENCOUNTER → 2022-07-17 | Outpatient (CLI) | payer OTHER, MEDICAID, SELFPAY ==
[2022-07-19 21:01] LABS: Pancreatic Elastase, Fecal 183 (>200)
[2022-07-21 19:05] LABS: Calprotectin, Stool 150 ug/g (0-120); Fats, Neutral Normal (.); Fats, Total Increased (.)
== END | disposition home or self-care (01) ==
LOC: LABSPEC 10:46
PROVIDERS: PCP Family Medicine; Referring Provider Internal Medicine Gastroenterology; Visit Provider Internal Medicine Gastroenterology
DX: R19.7 Diarrhea, unspecified (principal); K58.9 Irritable bowel syndrome, unspecified
CPT/HCPCS: 82274; 82653; 82705; 83630; 83993; 87177; 87209; 87329; 87493; 87506

== ENCOUNTER 2022-07-24 17:10 | Emergency (ER) | payer OTHER, MEDICAID, SELFPAY ==
[2022-07-24 17:11] VITALS: BP 104/78; PULSE 117; RESP 16; TEMP 36.8; O2SAT 93; BMI 20.7
--- NOTE | 2022-07-24 18:14 | CT_ITS ---
INDICATION: RLQ pain EXAMINATION: CT ABDOMEN AND PELVIS WITH CONTRAST - CT Abdomen And Pelvis W/ Contrast Injection TECHNIQUE: Helically acquired images were obtained of the abdomen and pelvis following IV contrast. A radiation dose optimization technique was used for this scan. IV Contrast dosage and agent: Oral contrast: None. COMPARISON: None. FINDINGS: LOWER CHEST: Lung bases are clear. No cardiomegaly or pericardial effusion. LIVER: Homogeneous. No focal mass. GALLBLADDER AND BILIARY TREE: No calcified gallstones. No gallbladder distension or wall edema. No intra- or extrahepatic biliary ductal dilation. PANCREAS: No focal cystic or solid mass. SPLEEN: Normal size without focal cystic or solid mass. ADRENAL GLANDS: No nodules. KIDNEYS AND URETERS: Normal renal size and position. No hydronephrosis. PERITONEUM: No ascites or free air. No other fluid collection. BOWEL: No evidence of acute appendicitis. No stomach or bowel distension. Diffuse sigmoid diverticulosis is present. There is demonstrated wall thickening of the ascending colon extending from the cecum to the hepatic flexure most concerning for underlying colitis. Appendix is normal. LYMPH NODES: No enlarged mesenteric or retroperitoneal lymph nodes. VESSELS: Diffuse arthroscopic calcifications abdominal aorta with noted triple-lumen narrowing of the inferior abdominal aorta measuring 1 cm with luminal diameter measuring 1.6 cm. URINARY BLADDER: Unremarkable. REPRODUCTIVE ORGANS: Calcified prostate with mild enlargement is noted. ABDOMINAL WALL: No discrete abdominal or pelvic wall hernia. BONES: No lytic or blastic abnormality. CT/Abdomen/Pelvis WITH Contrast IMPRESSION: 1. Wall thickening of the descending colon from the cecum to the hepatic flexure consistent with underlying colitis with differential including inflammatory/infectious etiology and underlying ischemia not completely excluded. Normal appendix. 2. Extensive atherosclerotic calcification abdominal aorta with approximately 50% narrowing of the true lumen along the distal abdominal aorta. Electronically Signed: Suleman DO Max at 20:43 EST ,
--- NOTE | 2022-07-24 18:15 | EDS_ITS ---
HPI HPI - GI History of Present Illness Chief Complaint: Abd Pain Informant: patient Abdominal Pain/Flank Pain Onset: Days (2) Context: Gradual Onset Timing: Continuous Quality: Aching and Sharp Location: RLQ (After migrating from stomach as patient indicates epigastrium) Current Severity: Severe Maximum Severity: Severe Worsened by: Movement Relieved by: Remaining Still Nausea/Vomiting/Emesis GI Symptom: Negative for Nausea or Vomiting Diarrhea/Melena/Hematochezia GI Symptom: Positive for Diarrhea (Pre-existing, couple times a day liquid nonbloody nonmelanotic) Associated Symptoms Associated Symptoms: Negative for Dysuria, Frequency, Hematuria or Urgency Narrative Narrative: Patient presents with 2 days of abdominal pain that started his epigastric discomfort and migrated to the right lower quadrant where it has been continuously for the past day or so. No nausea or vomiting. States he is hungry but afraid to eat for some reason. No pain into his back or flank. History of a remote right inguinal herniorrhaphy but no other abdominal surgeries. He states he has had intermittently chronic sharp abdominal pains and diarrhea couple times a day without any blood and states he is being worked up for the possibility of inflammatory bowel disease but has not seen GI and had a scope he had although that is in the works. No urinary symptoms. No history of kidney stones. Never had this pain before, and he states this is distinctly different from his chronic abdominal discomfort. [facility] Medical History Abnormal thyroid blood test GERD (gastroesophageal reflux disease) Hyperlipidemia Melena Nausea Peripheral arterial disease Weight loss Home Medications famotidine 20 mg tablet (Pepcid) 20 mg PO BID #60 tabs 04/14/21 [Rx Last Taken Unknown] atorvastatin 20 mg tablet 20 mg PO DAILY 04/15/21 [History Last Taken Unknown] cilostazol 100 mg tablet 100 mg PO BID 04/15/21 [History Last Taken Unknown] ciprofloxacin HCl 500 mg tablet 500 mg PO BID #20 TABLETS 07/24/22 [Rx Last Taken Unknown] metronidazole 500 mg tablet 500 mg PO BID #20 tabs 07/24/22 [Rx Last Taken Unknown] prednisone 20 mg tablet 40 mg PO DAILY #12 TABLETS 07/24/22 [Rx Last Taken Unknown] Allergy/AdvReac Type Severity Reaction Status Date / Time No Known Allergies Allergy Verified 07/24/22 17:10 Surgical History H/O hernia repair Social History Smoking Status: Current every day smoker tobacco type: cigarettes ROS ROS ED Constitutional Constitutional ED: Denies chills or fever(s) Eyes Eyes: Denies change in vision or diplopia ENT ENT ED: Denies rhinorrhea or sore throat Cardiovascular Cardiovascular: Denies chest pain or palpitations Respiratory/Chest Respiratory/Chest: Denies cough or dyspnea Gastrointestinal Gastrointestinal: Reports abdominal pain and diarrhea; Denies nausea or vomiting Genitourinary Genitourinary ED: Denies dysuria or hematuria Musculoskeletal Musculoskeletal: Denies back pain or neck pain Integumentary Denies abscess or rash Neurologic Neurologic: Denies headache(s), paresthesias or weakness Psychiatric Psychiatric: Denies anxiety or suicidal thoughts EXAM Physical Exam Const Vital Signs: 07/24/22 17:11 Temperature 98.3 F Temperature Source Oral Pulse Rate 117 H Respiratory Rate 16 Blood Pressure 104/78 Blood Pressure Mean 86 Pulse Ox 93 Oxygen Delivery Method Room Air Positive well nourished and well developed General Appearance ED: well developed and NAD HEENT Reports moist mucous membranes normocephalic and atraumatic Eyes PERRL and EOMs intact bilaterally Neck full ROM and supple Resp normal respiratory effort and clear to auscultation bilaterally Cardio regular rate, regular rhythm and no murmurs GI non-distended GI Narrative: Very tender in the right lower quadrant no guarding or rebound. No other areas of tenderness. Mildly positive psoas, obturator, Rovsing signs, the obturator is the worst/most painful. Auscultation: normoactive bowel sounds Palpation: soft Back/Spine no CVA tenderness General Back: other FROM Extremity normal to inspection General Extremety ED: Negative for edema, pulses abnormal or tenderness General Extremity: Negative for edema or pulses abnormal Neuro oriented x3, CN's II-XII intact bilaterally and no sensory deficits noted Sensorium / Orientation: awake and alert Motor Exam: strength 5/5 throughout Psych mental status grossly normal and thought process normal Skin no rashes or lesions noted and no wounds MDM MDM MDM Narrative Medical decision making narrative: Appendicitis in the differential diagnosis, so since the patient is thin, oral and IV contrasted CT was obtained in addition to labs. He does have a leukocytosis. CT shows normal appendix however, and signs of pericecal colitis that could be ischemic in etiology especially given the atherosclerosis that is also noted and the patient already knows about. He is already on baby aspirin daily for that. He is following with Dr. Pina, I discussed the CT and labs with him. He recommends placing the patient on prednisone for the next week after Solu-Medrol IV here, as well as Cipro and Flagyl and have him follow-up closely in the office. Discussed this with the patient he is comfortable with that plan, he is doing well after Toradol but would like something else for pain so he will be given a [place] here tonight as well as started on the above medications. Lab Data Attestation: I reviewed the patient's lab results. Labs: Laboratory Results - last 24 hr 07/24/22 07/24/22 07/24/22 18:25 18:25 19:25 WBC 16.5 H RBC 4.69 Hgb 14.8 Hct 42.6 MCV 90.8 MCH 31.6 MCHC 34.7 RDW Std Deviation 46.7 H RDW Coeff of Danny 13.9 Plt Count 283 MPV 8.6 Immature Gran % (Auto) 0.400 Neut % (Auto) 73.0 H Lymph % (Auto) 15.4 L [place] % (Auto) 9.3 Eos % (Auto) 1.5 Baso % (Auto) 0.4 Absolute Neuts (auto) 12.0 H Absolute Lymphs (auto) 2.54 Nucleated RBC % 0 Differential Comment SCANNED Sodium 139 Potassium 3.7 Chloride 106 Carbon Dioxide 30.0 Anion Gap 3 L BUN 20 H Creatinine 0.86 Estim Creat Clear Calc 79.84 Est GFR (MDRD) Af Amer 116 Est GFR (MDRD) Non-Af 96 BUN/Creatinine Ratio 23.2 H Glucose 104 Calcium 9.6 Total Bilirubin 0.60 AST 11 L ALT 21 Alkaline Phosphatase 99 Total Protein 7.2 Albumin 3.6 Globulin 3.6 Albumin/Globulin Ratio 1.0 Urine Color Yellow Urine Clarity Sl. Cloudy Urine pH 5.0 Ur Specific [place] 1.025 Urine Protein 15 H Urine Glucose (UA) Normal Urine Ketones Negative Urine Occult Blood 10 H Urine Nitrite Negative Urine Bilirubin Negative Urine Urobilinogen 1 H Ur Leukocyte Esterase Negative Urine RBC 0-5 SEEN Urine WBC 0 SEEN Ur Squamous Epith Cells 0-5 SEEN Amorphous Sediment 1+ URATE Urine Bacteria 0 SEEN Urine Mucus 2+ Radiography Diagnostic Testing: Clinical Impression(s) from Imaging Studies Abdomen/Pelvis CT 07/24/22 18:14 IMPRESSION: 1. Wall thickening of the descending colon from the cecum to the hepatic flexure consistent with underlying colitis with differential including inflammatory/infectious etiology and underlying ischemia not completely excluded. Normal appendix. 2. Extensive atherosclerotic calcification abdominal aorta with approximately 50% narrowing of the true lumen along the distal abdominal aorta. Electronically Signed: Suleman Santana DO at 20:43 EST Reading Location ID and State: [facility] / [place] , Service support , Discharge Plan Triage Chief Complaint: Abd Pain ED Provider: Mukesh Van Dx/Rx/DC Orders Clinical Impression: Acute colitis, Atherosclerosis of [place] arteries of extremities with intermittent claudication, bilateral legs Instructions: ED Understanding Colitis Prescriptions: New metronidazole [metronidazole] 500 mg tablet 500 mg PO BID Qty: 20 0RF ciprofloxacin HCl [ciprofloxacin HCl] 500 mg tablet 500 mg PO BID Qty: 20 0RF prednisone 20 mg tablet 40 mg PO DAILY Qty: 12 0RF No Action famotidine [Pepcid] 20 mg tablet 20 mg PO BID Qty: 60 0RF cilostazol 100 mg tablet 100 mg PO BID Label Comments: TAKE 1 TABLET BY MOUTH TWICE DAILY atorvastatin 20 mg tablet 20 mg PO DAILY Label Comments: Take 1 tablet by mouth once daily. Primary Care Provider: Goran Timmons Referrals: FriendJose DO [Med Staff - Active Staff] - As soon as possible (call for appt) Goran Timmons MD [Primary Care Provider] - Disposition Disposition: Home, Self Care
[2022-07-24] MEDS: 0.9% Normal Saline 1,000 ML 1000 ML IV (18:32)
[2022-07-24 18:37] LABS: Absolute Lymphocyte Count 2.54 X10^3/uL (0.83-4.51); Basophil# 0.07 X10^3/uL; Basophil% 0.4 % (0-1); Eosinophil# 0.25 X10^3/uL; Eosinophils% 1.5 % (0-5); Hematocrit 42.6 % (40-54); Hemoglobin 14.8 g/dL (13.0-16.5); Lymphocyte # 2.54 X10^3/ul (0.83-4.51); Lymphocyte % 15.4 % (19-41); Mean Corp Hgb Conc 34.7 g/dL (32-36); Mean Corpuscular Hgb 31.6 pg (27.0-32.0); Mean Corpuscular Volume 90.8 fL (80-94); Mean Platelet Vol. 8.6 fl (6.2-12.0); Monocyte# 1.53 X10^3/uL; Monocyte% 9.3 % (0-10); NRBC Flagged by Analyzer 0 % (0-5); Neutrophil # 12.03 X10^3/uL (2.7-7.7); POSITIVE DIFFERENTIAL YES; Platelet Count 283 K/mm3 (150-450); RBC Distribution Width CV 13.9 % (11.6-14.6); RBC Distribution Width SD 46.7 fl (35.1-43.9); Red Blood Count 4.69 M/mm3 (4.6-6.2); White Blood Count 16.5 K/mm3 (4.4-11.0)
[2022-07-24 18:46] LABS: Differential Indicated SCAN CRITERIA MET
[2022-07-24 19:06] LABS: AST(SGOT) 11 U/L (15-37); Alanine Aminotransfer ALT/SGPT 21 U/L (16-61); Albumin, Serum 3.6 g/dL (3.2-5.0); Alkaline Phosphatase 99 U/L (45-117); Anion Gap 3 (5-15); BUN 20 mg/dL (7-18); BUN/Creat Ratio 23.2 RATIO (10-20); Calcium,Total 9.6 mg/dL (8.5-10.1); Chloride 106 mmol/L (98-107); Creatinine, Serum 0.86 mg/dL (0.70-1.30); EST Glomerular Filtration Rate 96 mL/min (>60); Est Glom Filt Rate - Afr Amer 116 mL/min (>60); Estimated Creatinine Clearance 79.84 ml/min; Globulin 3.6 g/dL (2.2-4.2); Glucose 104 mg/dL (74-106); Potassium 3.7 mmol/L (3.5-5.1); Protein, Total 7.2 g/dL (6.4-8.2); Sodium Level 139 mmol/L (136-145)
[2022-07-24 19:13] LABS: Differential Comment SCANNED
[2022-07-24 19:32] LABS: Bacteria 0 SEEN /hpf (None Seen); White Blood Cells 0 SEEN /hpf (0-5)
[2022-07-24 20:32] LABS: Color, Urine Yellow (Yellow); Glucose, Dipstick Normal (Normal); Ketone-Dipstick Negative (Negative); Leukocyte Esterase-Dipstick Negative /ul (Negative); Nitrite-Dipstick Negative (Negative); Occult Blood-Urine 10 /ul (Negative); Protein-Dipstick 15 mg/dl (Negative); Specific Gravity, Urine 1.025 (1.002-1.030); Urine Bilirubin Dipstick Negative (Negative); Urine Clarity Sl. Cloudy (Clear); Urine Urobilinogen 1 mg/dl (Normal)
[2022-07-24 20:39] LABS: Amorphous Sediment 1+ URATE; Mucous, Urine 2+ /hpf (<or=2+); Red Blood Cells-Urine 0-5 SEEN /hpf (0-5); Squamous Epithelial Cells - UA 0-5 SEEN /hpf (0-5)
[2022-07-24 21:13] VITALS: BP 101/80; PULSE 94; RESP 18; O2SAT 95
[2022-07-24] MEDS: Ciprofloxacin 500 MG Tablet PO (21:33)
[2022-07-24] MEDS: metroNIDAZOLE 500 MG Tablet PO (21:33)
[2022-07-24] MEDS: MethylPREDNISolone 125 MG/2 ML Vial IV (21:34)
[2022-07-24] MEDS: HYDROcodone Bitartrate/Apap 5/325 Tablet PO (21:34)
[2022-07-25 14:10] LABS: Pathologist Review Reviewed
== END 2022-07-24 22:28 | disposition home or self-care (01) ==
PROVIDERS: Emergency Provider Emergency Medicine; PCP Family Medicine; Visit Provider Emergency Medicine
DX: K52.9 Noninfective gastroenteritis and colitis, unspecified (principal); I70.213 Atherosclerosis of native arteries of extremities with intermittent claudication, bilateral legs; E78.5 Hyperlipidemia, unspecified; K21.9 Gastro-esophageal reflux disease without esophagitis; F17.210 Nicotine dependence, cigarettes, uncomplicated; Z79.899 Other long term (current) drug therapy
CPT/HCPCS: 74177; 80053; 81001; 85025; 96361; 96374; 99283; J7030; Q9967; A4216; J2405

== ENCOUNTER 2022-09-01 05:32 | Inpatient (IN) | payer OTHER, MEDICAID, SELFPAY ==
--- NOTE | 2022-08-28 16:49 | SUR.PREOP ---
This nurse sent Chlorhexidine soap (surgical pre wash) to the ED triage desk for patient to retrieve before surgery on 09/01/22. This communicated with [facility] [employer]. Instructions from [facility] printed and with soap for patient to read.
--- NOTE | 2022-08-28 17:41 | CASEMGMT ---
Care Management - Social Work Note Care Management Department alerted by SALONI RN,regarding patient living in semi-truck and not having access to showers, other than at truck stops. Concern for patient being able to have a place to shower before surgery. Call to Dr. Mcdonough's office and spoke with nurse Benedict. Office aware of patient's options for showering, as well as where patient typically sleeps. Inquired to nurse as to if there will be any particular discharge needs after the type of surgery patient is having, taking into account patient's living environment. Nurse took this teletypewriter operator's name and number to call back if physician determined any specific needs for home going. Called the patient to review need for shower prior to surgery, living situation and available supports. Patient's sister, who is listed as emergency contact, is reportedly in a senior living and about to go to [facility]. Patient reports had lived with his sister for years and lost their home last year. Patient reports tried to live on a boat the patient purchased, and this did not work out, then ended up living at [facility] from April 2022 to May 2022. 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 Patient reports to live in the semi he drives and showers in truck stops. Patient reports closest family, outside of sister, is 1,000 miles away. No children. Patient also shared that told employer would be in the hospital for a week due to surgery, so the truck is getting serviced. Patient reports will not have access to the truck or bed in the truck for a week post surgery. Patient discussed was told will have electric suctions coming off of surgical sites and will need to be watched for blood clots, so patient expressed thought that would be in the hospital for a week. Patient expressed that currently on the road in [place] and will not be back into [place] to get Chlorhexidine wash until Thursday. Patient expressed thought would check self into the hospital Thursday night to sleep and shower. Discussed with patient that this is not typical protocol. Attempted to problem solve patient going to a hotel to stay on Thursday night. Patient expressed feeling hotels are unsanitary, are not cleaned properly, and have bed bugs, so does not want to go to a hotel. Attempted to call Dr. Mcdonough's office again, but sent to [employer]. Left a message to call this teletypewriter operator. This teletypewriter operator collaborated with PAT services and obtained a bottle of Chlorhexidine wash for patient. Wash sent to the ED for patient to [facility] on Thursday when patient gets into town. ED Director made aware of this patient picking up wash this weekend. Called the [facility] to see if patient (though did not give a name) could take a shower there for medical reasons Thursday night and Thursday morning. This teletypewriter operator was told this would be allowable. Called patient back. Educated patient to work done to help get patient set up for surgery. Patient stated that went into emergency mode after talking to this teletypewriter operator. Cancelled truck service for the week, called and found a hotel that takes debit cards and though despises hotels agrees to stay there Thursday to shower and wash self in the PM and AM prior to surgery. Patient agrees to go to ED to [facility] pick[facility] wash on Thursday. Patient made comment that between what you and I have done have a plan for pre-surgery care needs. Note, thorugh conversation patient expressed frustration that cannot just stay at the hospital for a few days as [facility] is a big hospital. Patient commented that his sister has gotten to sit in the hospital for 3 days before waiting for a senior living, so why can't patient stay at the hospital if at risk for blood clots and seizures after surgery. Educated patient that with any surgical procedure there is a risk for blood clots, but that care is taken to reduce risk and educate patients how they can care for themselves too. Educated patient that discharge is dependent on medical needs, and that patient's discharge timeframe is dependent on how patient is doing medically. Educated patient that after surgery it will be better known what type of monitoring patient will need and for how long. Educated that RN CM's and SWs are available to assist with discharge planning as indicated; to explore what options are available depending on needs. Did not guarantee any service or outcome to patient, but reinforced that care is dependent on need, and options for aftercare as indicated would be looked at. Patient did express thanks for this teletypewriter operator calling, and making efforts to assist patient. Plan: Surgery on 09.01.21. Care Management available if discharge planning needs arise. -LIVIER Owens, [employer] TECH
[2022-09-01] VITALS (9 sets, daily range): BP systolic 101–145; BP diastolic 58–85; PULSE 87–100; RESP 13–16; TEMP 37.1–37.2; O2SAT 95–100; BMI 21.5; BMI 21.4
--- NOTE | 2022-09-01 05:46 | EKG12_ITS ---
Test Reason : PRE OP Blood Pressure : / mmHG Vent. Rate : 081 BPM Atrial Rate : 081 BPM P-R Int : 140 ms QRS Dur : 086 ms QT Int : 348 ms P-R-T Axes : 069 085 065 degrees QTc Int : 404 ms * Pediatric ECG Analysis * Normal sinus rhythm Normal ECG Confirmed by SHYAM BURDEN, AMNA ([id number]), editor newspaper MILVIA TOMPKINS ([id number]) on 09/08/2022 12:58:05 PM Referred By: Pierce Mcdonough Confirmed By:NATY HOWE MD
--- NOTE | 2022-09-01 06:00 | RAD_ITS ---
STUDY: X-RAY CHEST REASON FOR EXAM: Male, 62 years old. PRE OP TECHNIQUE: Single AP portable view of the chest. COMPARISON: None. FINDINGS: No focal infiltrates or effusions. No pneumothorax. Normal size heart. Normal mediastinum and ashlyn. Normal visualized pulmonary arteries. Normal visualized aortic arch and descending thoracic aorta. Normal visualized thoracic spine. Normal visualized ribs, clavicles, and shoulders. There is no demonstrated abnormality of the visualized soft tissue structures of the upper abdomen. RAD/Chest 1 View IMPRESSION: Normal x-ray examination of the chest. Electronically Signed: Tashi Lindsey MD at 6:27 EST Reading Location ID and State: [id number] / , Service support ,
[2022-09-01] MEDS: Lactated Ringers 1,000 ML 15 ML IV (07:06)
--- NOTE | 2022-09-01 07:49 | PCM.HP.STD ---
HPI - General General Date of Admission: 09/01/22 HPI Narrative COBY SIMONS, is a 62 M who presents with bilateral lower extremity claudication, right>left. Has been present for several years, worsening more rapidly over past few months. Now able to walk ~100 ft before needing to stop. No rest pain or foot wounds. No prior arterial surgery or interventions. Had been seen by [facility] Helms who initiated Pletal and encouraged exercise. His symptoms have progressed with no improvement in walking distance. Works as a truck driver's offsider. Symptoms currently limiting work capabilities; has to stop and rest after one trip around truck trailer or part way across parking lots in truck stops. [facility] Medical History (Updated 08/18/22 @ 10:36 by Eryn Corrales) Abnormal thyroid blood test Difficulty swallowing GERD (gastroesophageal reflux disease) High cholesterol History of pain when walking History of steroid therapy Hyperlipidemia Leg cramps Melena MGUS (monoclonal gammopathy of unknown significance) Nausea Peripheral arterial disease Smoker Wears glasses Weight loss Home Medications atorvastatin 20 mg tablet 20 mg PO DAILY CHOLESTEROL 04/15/21 [History Last Taken 08/25/22] cilostazol 100 mg tablet 100 mg PO BID BLOOD FLOW 04/15/21 [History Last Taken Unknown] famotidine 20 mg tablet (Pepcid) 20 mg PO BID GERD 08/18/22 [History Last Taken Unknown] Allergy/AdvReac Type Severity Reaction Status Date / Time No Known Allergies Allergy Verified 09/01/22 06:26 Surgical History H/O hernia repair Social History Smoking Status: Current every day smoker tobacco type: cigarettes ROS Constitutional Constitutional: Denies chills, fever(s), frequent falls, lethargy or weakness Eyes Eyes: Denies blind spots, change in vision or loss of vision ENT HEENT: Denies bleeding gums, hoarseness or sore throat Cardiovascular Cardiovascular: Denies abdominal pain, bluish discoloration of hand/feet, chest pain with activity, claudication, cold extremities, cyanosis, dyspnea on exertion, erythema on extremities, irregular heart rhythm, leg edema, leg ulcers, numbness in extremities or weakness in extremities Respiratory/Chest Respiratory/Chest: Denies cough, excessive phlegm production, shortness of breath at rest, shortness of breath with exertion or wheezing Gastrointestinal Gastrointestinal: Denies anorexia, melena or rectal bleeding Genitourinary Genitourinary: Denies dysuria or hematuria Musculoskeletal Musculoskeletal: Denies abnormal gait Integumentary Integumentary: Reports other Details: ; Denies erythema, non-healing lesions or wounds Neurologic Neurologic: Denies abnormal speech, focal weakness, headache(s), loss of vision, numbness, paresthesias or sensory deficit Hematologic/Lymphatic Hematologic/Lymphatic: Denies easy bleeding, easy bruising or lymphadenopathy Vital Signs Vital Signs Vital Signs: 09/01/22 07:00 Temperature 99.0 F Temperature Source Temporal Pulse Rate 89 Respiratory Rate 16 Blood Pressure 115/81 H Blood Pressure Mean 92 Blood Pressure Source Monitor Blood Pressure Position Semi-Fowlers Blood Pressure Location Left Arm Pulse Ox 100 Oxygen Delivery Method Room Air Weight Weight: 141 lb 12.116 oz Body Mass Index (BMI) 21.5 Physical Exam Const alert, oriented x3, no apparent distress and healthy appearing General Appearance: cooperative; Negative for combative or lethargic Orientation / Consciousness: awake Exam Limitations: no limitations HEENT Head and Scalp: normocephalic and atraumatic Eyes EOMs intact bilaterally General Eye: normal appearance of both eyes Neck full ROM, no lymphadenopathy, thyroid normal and No no carotid bruits General: trachea midline; Negative for lymphadenopathy or tenderness Thyroid: thyroid normal Lymph Lymphatic: Negative for no lymphadenopathy noted Resp normal respiratory effort, no use of accessory muscles and clear to auscultation bilaterally Effort and Inspection: Negative for labored, stridor or audible wheezes Cardio regular rate, regular rhythm and no murmurs Peripheral Pulses: brachial pulses present, radial pulses present and femoral pulses present left; Negative for popliteal pulses present, posterior tibial pulses present or dorsalis pedis pulses present GI non-tender and non-distended; Negative for hepatosplenomegaly Back/Spine Cervical Spine: cervical ROM normal Extremity full ROM, normal capillary refill and no clubbing, cyanosis or edema Skin no rashes or lesions noted and no wounds Neuro oriented x3, CN's II-XII intact bilaterally, no focal motor deficits and no sensory deficits noted Psych thought process normal, cooperative, affect normal, speech normal and activity/motor behavior normal Results Lab / Micro Data Labs: Laboratory Results - last 24 hr 09/01/22 06:14: Blood Type B POSITIVE, Antibody Screen NEGATIVE Radiology Impression Chest X-Ray 09/01/22 06:00 IMPRESSION: Normal x-ray examination of the chest. Electronically Signed: Tashi Lindsey MD at 6:27 EST Reading Location ID and State: [id number] / , Service support , Assessment & Plan Assessment/Plan (1) Atherosclerosis of [place] arteries of extremities with intermittent claudication, bilateral legs: PLAN: PVR- results from [facility] reviewed, moderate arterial insufficiency bilateral CTA- images reviewed, infrarenal aortic plaque with mild stenosis, left common/external iliac diffuse stenosis, left common femoral stenosis, right common iliac stenosis, right external iliac occlusion, right common femoral stenosis -plan bilateral femoral endart, possible bilateral iliac stents, if unable to cross right iliac then fem fem, bilateral sartorious flaps
[2022-09-01 08:52] LABS: Absolute Lymphocyte Count 3.28 X10^3/uL (0.83-4.51); Absolute Neutrophil Count 5.1 X10^3/uL (2.0-7.7); Eosinophil# 0.49 X10^3/uL; Eosinophils% 4.9 % (0-5); Hematocrit 42.7 % (40-54); Hemoglobin 14.4 g/dL (13.0-16.5); Lymphocyte # 3.28 X10^3/ul (0.83-4.51); Lymphocyte % 33.1 % (19-41); Mean Corp Hgb Conc 33.7 g/dL (32-36); Mean Corpuscular Hgb 30.4 pg (27.0-32.0); Mean Corpuscular Volume 90.1 fL (80-94); Mean Platelet Vol. 9.2 fl (6.2-12.0); Monocyte# 0.86 X10^3/uL; Monocyte% 8.7 % (0-10); NRBC Flagged by Analyzer 0 % (0-5); Neutrophil # 5.14 X10^3/uL (2.7-7.7); Platelet Count 281 K/mm3 (150-450); RBC Distribution Width CV 13.7 % (11.6-14.6); RBC Distribution Width SD 45.6 fl (35.1-43.9); Red Blood Count 4.74 M/mm3 (4.6-6.2); White Blood Count 9.9 K/mm3 (4.4-11.0)
[2022-09-01] MEDS: Cefazolin 2 GM in 0.9% Normal Saline 100 ML IV (11:19)
[2022-09-01] MEDS: Heparin 10,000 UNITS/10 ML Vial 10000 UNITS ×2 (12:21→13:27)
[2022-09-01] MEDS: Heparin Injection (Vial) 5,000 UNIT/ML VIAL 5000 UNIT ×2 (12:30→16:39)
--- NOTE | 2022-09-01 13:30 | RAD_ITS ---
HISTORY: FEMORAL ENDARTERECTOMY COMPARISON: CT angiogram 06/11/2022 TECHNIQUE: A total of 9 fluoroscopic images with subtraction 9 subtraction fluoroscopic series were saved without a radiologist present. FINDINGS: Total fluoroscopy time: 13 minutes 32 seconds Number of images: 9 spot saved images with 9 fluoroscopic runs Cumulative air kerma: Not provided. RAD/Fluoroscopy 1 Hr or Less IMPRESSION: Fluoroscopic assistance for femoral endarterectomy. Please see operative report for additional information. Electronically Signed: Jeramy Kay MD at 22:46 EST ,
[2022-09-01 17:36] LABS: ACT Activated Clotting Time 113 sec (74-137)
[2022-09-01 17:37] LABS: ACT Activated Clotting Time 263 sec (74-137)
[2022-09-01 17:38] LABS: ACT Activated Clotting Time 227 sec (74-137)
[2022-09-01 17:39] LABS: ACT Activated Clotting Time 233 sec (74-137)
[2022-09-01 17:39] LABS: ACT Activated Clotting Time 227 sec (74-137)
[2022-09-01 17:40] LABS: ACT Activated Clotting Time 227 sec (74-137)
[2022-09-01 17:41] LABS: ACT Activated Clotting Time 221 sec (74-137)
[2022-09-01 17:42] LABS: ACT Activated Clotting Time 215 sec (74-137)
--- NOTE | 2022-09-01 18:34 | OP.PCM_ITS ---
Report of Operation Date of Procedure: 09/01/22 Pre-Operative Diagnosis: atherosclerosis with claudication, bilateral lower ext remities Surgery/Procedure Performed:: left common and SFA endarterecotomy right common and profunda endarterectomy left common and external iliac artery stents left to right femoral-femoral bypass bilateral sartorious flaps Surgeon: Pierce Mcdonough Type of Anesthesia: General Specimen's removed: plaque Estimated Blood Loss (mL): 300 Description of Procedure: HPI: Patient is a 62-year-old male with longstanding lifestyle limiting claudication that is affecting his ability to work. He had CT angiography which revealed left common and external iliac stenosis, right common iliac stenosis, right external iliac occlusion. He also had significant atherosclerotic burden in the bilateral common femoral arteries extending into the profunda on the right and the SFA on the left. He has failed to improve with conservative therapy and is taken now for revascularization. Description of procedure: Upon obtaining form consent and verification correct patient procedure and site patient was taken to the operating room was placed under general anesthesia. He was then positioned prepped and draped in usual sterile fashion and timeout performed. Oblique incision was made over the right common femoral artery and Bovie used to dissect down through subcutaneous tissue. Dissection was carried cephalad to the inguinal ligament which was freed along its inferior border along cephalad retraction. The femoral sheath was then incised vertically exposing the common femoral artery, and sharp dissection was then used to dissect free the vessel proximally to above the takeoff of the lateral circumflex iliac and epigastric arteries. This was the location of the total occlusion, and the vessel cephalad to this was very diminutive in size and appeared to have been very longstanding occlusion. We then carried our dissection distally down onto the proximal superficial femoral artery and onto the secondary branch of the profunda. Right angle used to place a vessel loop around each of these individually and with anterior attention to the left common femoral exposure. Oblique incision was made and Bovie used to dissect down through subcutaneous tissue self-retaining tractors put in position. Further dissection was carried down to the inguinal ligament which was then dissected superiorly. The femoral sheath was then incised vertically exposing the femoral vessels, and sharp dissection used to dissect free proximally up onto the distal external iliac artery. Writing was used to place a vessel loop around the external iliac as well as the lateral circumflex and inferior epigastric vessels. We then carried our dissection distally down the superficial femoral artery and tertiary branch of the profunda, with a vessel loop placed around each branch individually. The patient was then heparinized and allowed to circulate for 3 minutes. Using micropuncture needle and wire reaccessed the right common femoral artery in retrograde fashion, and exchanged out for micropuncture sheath. Through the micropuncture sheath using first a Bentson wire and then later a Glidewire we attempted to cross the occluded iliac. We exchanged the micropuncture sheath for an angled glide catheter, and despite multiple efforts we were unable to cross the occlusion. [place] that given inability to cross the lesion that optimizing the left iliac inflow and proceeding with a left to right femoral-femoral bypass was appropriate so we terminated efforts to cross the right external iliac artery. Next we occluded the left femoral vessels with Vesseloops in longitudinal arteriotomy was created with 11 blade extended with Monk scissors down onto the first 3 cm of the superficial femoral artery beyond the area of plaque. The arteriotomy was extended proximally up to under the inguinal ligament onto the distal external iliac artery beyond the plaque. We then used a freer elevator to perform an endarterectomy with satisfactory endpoint distally onto the origin of the profunda, and extending approximately 2 cm onto the SFA. The lumen was then flushed with heparinized saline to clear debris and a bovine pericardial patch was brought onto the field. This was secured in position using a 5-0 Prolene in a running fashion, and prior to completing the suture line the vessels were backbled. After completing the suture line clamps removed and satisfactory stasis was noted and there is a satisfactory signal proximal to and distal to th e patch on both the SFA and the profunda. Next using micropuncture needle and wire we accessed the midportion of the patch in retrograde fashion, exchanged out for micropuncture sheath. Through my puncture sheath Bentson wire was advanced and the micropuncture sheath exchanged out for an 8 Amharic sheath. Through the 8 Amharic sheath using the angled glide catheter and Glidewire we navigated the iliac vessels and advance her catheter into the aorta. Hand- injection via the catheter confirmed the location within the true lumen with no extravasation or dissection. Bentson wire was then advanced through the catheter and the glide catheter removed. A marker pigtail catheter was then advanced over the wire and hand-injection angiogram the left iliac system was performed confirming the location of the aortic bifurcation and the extent of plaque. An 8 mm x 59 Montgomery Viabahn VBX balloon expandable covered stent was then brought on the field and advanced in the position at the aortic bifurcation. This was then inflated to nominal and then the balloon deflated withdrawn. Repeat angiography confirmed satisfactory position with no extravasation or dissection and resolved common iliac artery stenosis. Next a Cook Zilver self- expanding stent 10 x 80 was advanced in the position with satisfactory overlap into the distal Viabahn stent and then deployed. Finally a third stent, 10 x 40 was advanced in position extending down to the top of our endarterectomy patch. The external iliac artery was then postdilated with a 6 x 40 followed by 8 x 40 angioplasty balloons along the entirety of the length of the Zilver stents. Repeat angiography revealed satisfactory resolution of all of the areas of stenosis, with no extravasation or dissection and brisk contrast transit. The wires and sheath were then withdrawn and the left common femoral vessels reoccluded after which the puncture site was then extended with Monk scissors to act as the arteriotomy for the proximal bypass anastomosis. An 8 mm ringed PTFE graft was then tunneled in the suprapubic space and the proximal end beveled to match the arteriotomy. Anastomosis was performed with a 5-0 Prolene in a running fashion, and after completion of the suture line vessels were flushed into the graft with satisfactory brisk pulsatile flow. The graft was then occluded with atraumatic clamp and attention turned to the distal an astomosis. The right femoral vessels were occluded, and longitudinal arteriotomy created with 11 blade extended Monk scissors from the common femoral onto the profundofemoral artery main trunk. Endarterectomy was then performed of the distal common femoral artery onto the profundofemoral artery down to the secondary branches with satisfactory endpoint. Distal endpoint onto the origin of the SFA was tacked with 7-0 Prolene after which the graft was cut the length and beveled to match the arteriotomy. The anastomosis was then performed using 5-0 Prolene in a running fashion, and prior to coming suture line the vessels were backbled. After completing the suture line clamps removed and satisfactory stasis was noted with palpable pulse distal to the anastomosis. All vessels were then interrogated Doppler and found to be patent with appropriate signals. The patient was then reversed with protamine and vessels again assessed with Doppler and remained satisfactory. Next we dissected l aterally from the left femoral incision and mobilized the sartorius up to the insertion in the ASIS. This was then taken down from its insertion and mobilized along its lateral edge allowing it to be transposed medially and cover the graft in vessel. This was then secured in position using 2-0 Vicryl with no tension on the flap. Finally we dissected lateral from the right femoral incision and mobilized the sartorius up to the ASIS. Again this was taken down with Bovie and mobilized along its lateral wall and transposed over the right femoral vessels and graft. This then secured in position with a 2-0 Vicryl with no tension on the flap. Incision was then closed with 3-0 Vicryl for Monocryl and Dermabond for the skin followed by Prevena wound vacs. Patient was then taken to the intensive care unit for close hemodynamic and vascular monitoring. Complications 8 x 59 Montgomery VBX 10 x 8 Cook Zilver 10 x 4 [employer] Zilver
[2022-09-01] MEDS: Lactated Ringers 1,000 ML 100 ML IV (19:57)
[2022-09-01] MEDS: Famotidine 20 MG Tablet PO (20:10)
[2022-09-01] MEDS: Clopidogrel Bisulfate 300 MG Tablet PO (20:10)
[2022-09-01] MEDS: Cefazolin 1 GM/50 ML BAG IV (20:10)
[2022-09-01] MEDS: Acetaminophen 500 MG Tablet 1000 MG PO (20:10)
[2022-09-01] MEDS: Atorvastatin Calcium 20 MG Tablet PO (20:10)
[2022-09-01] MEDS: MELATONIN 3 MG TABLET PO (20:11)
[2022-09-02] VITALS (20 sets, daily range): BP systolic 90–133; BP diastolic 59–98; PULSE 81–103; RESP 13–24; TEMP 36.7–37.7; O2SAT 93–99
--- NOTE | 2022-09-02 | PLAQ_PTH ---
PATIENT: COBY SIMONSCCT #:[id number] LOC: [facility] U#:[id number] AGE/SX: 62/M ROOM: [facility] RE09/01/[address]: Dr. Pierce Mcdonough MD : 1960 BED: 1 DIS: 09/04/2022 SPEC #: [id number] RECD: 09/02/22 11:31 STATUS: INDRA INFANTE #: [id number] CHAITANYA: 09/02/22 00:[address]: Pierce Mcdonough DEPT: SURGICAL PATHOLOGY RECD BY: Ryan Berg ENTERED: 09/02/22 11:31 SP TYPE: PLAQUE OTHR DR: Dr. Goran Timmons MD Tissues: PLAQUE Procedures: Decalcification bone/plaque Surgery Specimen Level III HEADER OPERATION: Femoral endarterectomy, left common and external iliac stent PRE-OP DIAGNOSIS: Atherosclerosis of [place] arteries of extremities with intermittent claudication, bilateral legs TISSUE SUBMITTED: Plaque femoral MICROSCOPIC DIAGNOSIS Femoral plaque, endarterectomy: Atheromatous plaque consistent with severe stenosis. AM:keon 09/05/2022 GROSS DESCRIPTION Received in fixative is one container labeled with the patient's name and designated plaque femoral. The specimen consists of multiple elongated pieces of del rosario, indurated tissue that in aggregate measure 5 x 2 x 0.7 cm. The specimen cuts focally with gritty sensation. Commercial Loan Analyst sections are submitted in one cassette after decalcification. / SJ:keon 09/02/2022 TC:5 CPT: 58503, 13103
[2022-09-02 03:59] LABS: Absolute Lymphocyte Count 2.98 X10^3/uL (0.83-4.51); Absolute Neutrophil Count 6.8 X10^3/uL (2.0-7.7); Basophil# 0.08 X10^3/uL; Basophil% 0.7 % (0-1); Eosinophil# 0.15 X10^3/uL; Eosinophils% 1.4 % (0-5); Hematocrit 36.7 % (40-54); Hemoglobin 12.3 g/dL (13.0-16.5); Lymphocyte # 2.98 X10^3/ul (0.83-4.51); Lymphocyte % 26.9 % (19-41); Mean Corp Hgb Conc 33.5 g/dL (32-36); Mean Corpuscular Hgb 30.4 pg (27.0-32.0); Mean Corpuscular Volume 90.8 fL (80-94); Mean Platelet Vol. 9.1 fl (6.2-12.0); Monocyte# 1.05 X10^3/uL; Monocyte% 9.5 % (0-10); NRBC Flagged by Analyzer 0 % (0-5); Neutrophil # 6.77 X10^3/uL (2.7-7.7); Neutrophil % 61.2 % (47-70); Platelet Count 230 K/mm3 (150-450); RBC Distribution Width CV 13.9 % (11.6-14.6); RBC Distribution Width SD 46.6 fl (35.1-43.9); Red Blood Count 4.04 M/mm3 (4.6-6.2); White Blood Count 11.1 K/mm3 (4.4-11.0)
[2022-09-02 04:14] LABS: Anion Gap 7 (5-15); BUN 9 mg/dL (7-18); Calcium,Total 8.6 mg/dL (8.5-10.1); Chloride 109 mmol/L (98-107); Creatinine, Serum 0.64 mg/dL (0.70-1.30); EST Glomerular Filtration Rate 135 mL/min (>60); Est Glom Filt Rate - Afr Amer 163 mL/min (>60); Estimated Creatinine Clearance 110.94 ml/min; Glucose 114 mg/dL (74-106); Potassium 3.8 mmol/L (3.5-5.1); Sodium Level 143 mmol/L (136-145)
[2022-09-02] MEDS: Lactated Ringers 1,000 ML 100 ML IV (06:30)
[2022-09-02] MEDS: Cefazolin 1 GM/50 ML BAG IV ×2 (06:30→14:27)
[2022-09-02] MEDS: Acetaminophen 500 MG Tablet 1000 MG PO ×3 (06:30→20:26)
[2022-09-02] MEDS: Famotidine 20 MG Tablet PO ×2 (09:13→20:26)
[2022-09-02] MEDS: Enoxaparin 40 MG/0.4 ML Syringe SC (09:13)
[2022-09-02] MEDS: Aspirin 81 MG TAB.CHEW PO (09:13)
[2022-09-02] MEDS: Clopidogrel Bisulfate 75 MG Tablet PO (09:13)
--- NOTE | 2022-09-02 13:59 | CASEMGMT ---
WILLA LI PIG LEAD MELTER HELPER CM to room to meet with patient for initial transition planning/care coordination assessment. WILLA LI introduced self and role at [facility]. Pt voices understanding and consents to assessment at this time. Pt sitting up in chair in room in no distress at this time. Pt is A/O at this time and answers all questions appropriately. Care providers, pharmacy, and demographics verified/updated at this time. The address listed on pt's chart is the address to [facility] for mailing purposes. PCP: Dr Timmons Specialists: Dr Mcdonough--vascular surgeon Preferred Pharmacy: [facility] Retail Insurance: MMO, TIFFANY Prescription Benefit: Yes Living Will/HPOA/LNOK. Pt does not currently have LW/HCPOA and declines wanting to complete at this time. Pt's LNOK is his sister, Steffanie, but she resides @ a jail and pt states she gets confused easily and is not capable of making decisions. He states the next LNOK is his niece, Marj Chavez, who lives in [place]. He provided her contact information and requests she be listed as his primary printed circuit boards contact printer. Pt's sister, Steffanie Ann ([phone]) removed from pt contact list at this time, as pt would only want her notified if something happened to me. Living Arrangements: Lives in a semi-truck, owned by his employer. He states the truck is currently in the shop getting repairs done. He states prior to surgery he was independent and working full-time as an route delivery driver. Pt showers @ truck stops. See Cristal RAMIREZ, note from 08/28/22 for further information. Transportation: Pt drives DME: Denies using any DME and denies needs. HHC/SNF: No hx of either. Pt states it is not an option for him to discharge back to his semi-truck d/t not only is it in the shop, but also he would not be able to get up the steep steps into the truck. He states he does not want to go to the [employer] and that he would not be able to afford to stay in a hotel, stating, I only have about $200 left on my card and each night @ the hotel is $75. PLAN: TIFFANIE PERKINS RN, CM
--- NOTE | 2022-09-02 15:55 | CASEMGMT ---
Social Work SW received referral for housing concerns. SW met with pt and introduced self and role of SW. Pt confirms that he lives in his semi and his employer is aware of this. Pt states his semi is in the shop for the next week. Pt states his plan is to remain in the hospital for a week or two until he is recovered and will then return to his semi. SW explained that physician will determine needed length of hospital stay for recovery, but likely will not be one to two weeks and requested discharge plan be discussed. Pt somewhat frustrated by this information. SW offered information on area shelters. Pt adamantly refusing to go to [facility] or [facility]. SW inquired about permanent housing and [facility] to secure permanent [facility]. Pt declines stating he is only home one day a week and all of him money would be going to pay for a home where he never is. Pt states he is trying very hard to save money at this time and living in his semi is a good way to do this. Pt states that if he is discharged prior to being able to return to his Semi (because Semi is still in the shop or he cannot climb into the semi) he will go the [facility]. Although pt states he does not want to spend his money this way, he does not express any difficulty with paying for the room. Pt declines any SW intervention at this time. SW did notify pt that if a need arises, SW will remain available. TAISHA Morris
--- NOTE | 2022-09-02 17:48 | PCM.PN.SRG ---
Subjective Subjective Doing well. Sore/painful at incisions. Has walked in unit, not far enough to recreate symptoms. No CP/SOB/N/V. Voiding without difficulty. Objective Data Objective Data Vital Signs: Vital Signs Temp Pulse Resp BP Pulse Ox O2 Del Method O2 Flow Rate 98.9 F 99 23 H 116/74 98 Room Air 2 09/02/22 16:00 09/02/22 16:00 09/02/22 16:00 09/02/22 16:00 09/02/22 16:00 09/02/22 16:00 09/01/22 19:45 Oxygen Flow Rate (L/min) 2 Oxygen Delivery Method Room Air Weight: 136 lb 14.513 oz Body Mass Index (BMI) 21.4 Intake & Output: Intake and Output for Last 24 Hours 08/31/22 09/01/22 09/02/22 23:59 23:59 23:59 Intake Total 572.5 / 672.5 2810 / 2810 Output Total 1100 / 1725 2890 / 2890 Balance -527.5 / -1052.5 -80 / -80 Lab / Micro Data Result Diagrams: 09/02/22 03:50 09/02/22 03:50 Labs: Laboratory Results - last 24 hr 09/02/22 03:50: WBC 11.1 H, RBC 4.04 L, Hgb 12.3 L, Hct 36.7 L, MCV 90.8, MCH 30.4, MCHC 33.5, RDW Std Deviation 46.6 H, RDW Coeff of Danny 13.9, Plt Count 230, MPV 9.1, Immature Gran % (Auto) 0.300, Neut % (Auto) 61.2, Lymph % (Auto) 26.9, Sandoval % (Auto) 9.5, Eos % (Auto) 1.4, Baso % (Auto) 0.7, Absolute Neuts (auto) 6.8, Absolute Lymphs (auto) 2.98, Nucleated RBC % 0 09/02/22 03:50: Sodium 143, Potassium 3.8, Chloride 109 H, Carbon Dioxide 27.0, Anion Gap 7, BUN 9, Creatinine 0.64 L, Estim Creat Clear Calc 110.94, Est GFR (MDRD) Af Amer 163, Est GFR (MDRD) Non-Af 135, BUN/Creatinine Ratio 14.0, Glucose 114 H, Calcium 8.6 Radiography Diagnostic Testing: Radiology Impression Fluoroscopy 09/01/22 13:30 IMPRESSION: Fluoroscopic assistance for femoral endarterectomy. Please see operative report for additional information. Electronically Signed: Jeramy Kay MD at 22:46 EST Reading Location ID and State: [facility] / [place] Tel , Service support , Physical Exam Const alert, oriented x3, no apparent distress and healthy appearing General Appearance: cooperative; Negative for combative or lethargic Orientation / Consciousness: awake Exam Limitations: no limitations HEENT Head and Scalp: normocephalic and atraumatic Eyes EOMs intact bilaterally General Eye: normal appearance of both eyes Neck full ROM General: trachea midline Resp normal respiratory effort and no use of accessory muscles Effort and Inspection: Negative for labored, stridor or audible wheezes Cardio regular rate and regular rhythm Peripheral Pulses: radial pulses present, posterior tibial pulses present and dorsalis pedis pulses present Back/Spine Cervical Spine: cervical ROM normal Extremity full ROM, normal capillary refill and no clubbing, cyanosis or edema Skin no rashes or lesions noted and no wounds Neuro oriented x3, CN's II-XII intact bilaterally, no focal motor deficits and no sensory deficits noted Psych thought process normal, cooperative, affect normal, speech normal and activity/motor behavior normal Assessment & Plan Assessment/Plan (1) Atherosclerosis of [place] arteries of extremities with intermittent claudication, bilateral legs: PLAN: -POD # 1 bilateral femoral endart, left common/external iliac stents, left to right fem-fem, bilateral sartorius flaps -now with palpable pedal pulses bilateral -progressive ambulation -cont asa, plavix -to PCU
[2022-09-02] MEDS: Atorvastatin Calcium 20 MG Tablet PO (20:26)
[2022-09-03] VITALS (8 sets, daily range): BP systolic 92–132; BP diastolic 68–86; PULSE 85–111; RESP 14–18; TEMP 36.6–37.6; O2SAT 91–100
[2022-09-03] MEDS: MELATONIN 3 MG TABLET PO (02:24)
[2022-09-03 04:50] LABS: Absolute Lymphocyte Count 2.61 X10^3/uL (0.83-4.51); Absolute Neutrophil Count 7.6 X10^3/uL (2.0-7.7); Basophil# 0.08 X10^3/uL; Basophil% 0.7 % (0-1); Eosinophil# 0.41 X10^3/uL; Eosinophils% 3.4 % (0-5); Hematocrit 36.2 % (40-54); Hemoglobin 12.4 g/dL (13.0-16.5); Lymphocyte # 2.61 X10^3/ul (0.83-4.51); Lymphocyte % 21.5 % (19-41); Mean Corp Hgb Conc 34.3 g/dL (32-36); Mean Corpuscular Hgb 30.8 pg (27.0-32.0); Mean Corpuscular Volume 89.8 fL (80-94); Monocyte# 1.39 X10^3/uL; Monocyte% 11.5 % (0-10); NRBC Flagged by Analyzer 0 % (0-5); Neutrophil # 7.59 X10^3/uL (2.7-7.7); Neutrophil % 62.6 % (47-70); Platelet Count 221 K/mm3 (150-450); RBC Distribution Width CV 13.7 % (11.6-14.6); RBC Distribution Width SD 44.9 fl (35.1-43.9); Red Blood Count 4.03 M/mm3 (4.6-6.2); White Blood Count 12.1 K/mm3 (4.4-11.0)
[2022-09-03 05:18] LABS: Anion Gap 7 (5-15); BUN 10 mg/dL (7-18); BUN/Creat Ratio 16.1 RATIO (10-20); Calcium,Total 8.8 mg/dL (8.5-10.1); Chloride 106 mmol/L (98-107); Creatinine, Serum 0.62 mg/dL (0.70-1.30); EST Glomerular Filtration Rate 141 mL/min (>60); Est Glom Filt Rate - Afr Amer 170 mL/min (>60); Estimated Creatinine Clearance 111.29 ml/min; Glucose 109 mg/dL (74-106); Sodium Level 139 mmol/L (136-145)
[2022-09-03] MEDS: Acetaminophen 500 MG Tablet 1000 MG PO ×3 (06:37→21:51)
[2022-09-03] MEDS: Famotidine 20 MG Tablet PO ×2 (08:25→21:51)
[2022-09-03] MEDS: Aspirin 81 MG TAB.CHEW PO (08:25)
[2022-09-03] MEDS: Enoxaparin 40 MG/0.4 ML Syringe SC (08:26)
[2022-09-03] MEDS: Clopidogrel Bisulfate 75 MG Tablet PO (08:26)
--- NOTE | 2022-09-03 14:40 | PN.SURG_ITS ---
Subjective Subjective Patient is recovering well overall. Complains of pain/soreness and numbness around incision sites. Has been up walking without issue and without pain that was present prior to surgery. Pain is well managed with PO regimen. Voiding urine without issue. Denies F/C, N/V, SOB, CP. Objective Data Objective Data A&Ox3, NAD RRR Non-labored respirations, CTA Bilateral incision sites C/D/I without signs/symptoms of infection, no hematoma/bleeding. Palpable PT and DP pulses bilaterally, bilateral LE with appropriate color and warmth. Vital Signs: Vital Signs Temp Pulse Resp BP Pulse Ox O2 Del Method O2 Flow Rate 98.4 F 85 16 107/72 95 Room Air 2 09/03/22 11:37 09/03/22 11:37 09/03/22 11:37 09/03/22 11:37 09/03/22 11:37 09/03/22 11:37 09/01/22 19:45 Oxygen Flow Rate (L/min) 2 Oxygen Delivery Method Room Air Weight: 136 lb 14.513 oz Body Mass Index (BMI) 21.4 Intake & Output: Intake and Output for Last 24 Hours 09/01/22 09/02/22 09/03/22 23:59 23:59 23:59 Intake Total 572.5 / 672.5 2860 / 2860 420 / 420 Output Total 1100 / 1725 3040 / 3040 650 / 650 Balance -527.5 / -1052.5 -180 / -180 -230 / -230 Lab / Micro Data Result Diagrams: 09/03/22 04:21 09/03/22 04:21 Labs: Laboratory Results - last 24 hr 09/03/22 04:21: WBC 12.1 H, RBC 4.03 L, Hgb 12.4 L, Hct 36.2 L, MCV 89.8, MCH 30.8, MCHC 34.3, RDW Std Deviation 44.9 H, RDW Coeff of Danny 13.7, Plt Count 221, MPV 9.0, Immature Gran % (Auto) 0.300, Neut % (Auto) 62.6, Lymph % (Auto) 21.5, Bailey % (Auto) 11.5 H, Eos % (Auto) 3.4, Baso % (Auto) 0.7, Absolute Neuts (auto) 7.6, Absolute Lymphs (auto) 2.61, Nucleated RBC % 0 09/03/22 04:21: Sodium 139, Potassium 4.0, Chloride 106, Carbon Dioxide 26.0, Anion Gap 7, BUN 10, Creatinine 0.62 L, Estim Creat Clear Calc 111.29, Est GFR (MDRD) Af Amer 170, Est GFR (MDRD) Non-Af 141, BUN/Creatinine Ratio 16.1, Glucose 109 H, Calcium 8.8 Assessment & Plan Assessment/Plan (1) Atherosclerosis of [place] arteries of extremities with intermittent claudication, bilateral legs: PLAN: Patient is POD #2 from bilateral femoral endarterectomy, left common/external iliac stents, left to right fem-fem bypass, bilateral sartorius flaps. Expected pain/soreness surrounding incision sites, well controlled with PO medication. Numbness around incision sites is expected, not concerning. Continue with progressive ambulation. Continue ASA, Plavix. Patient does not yet feel ready for discharge, will keep overnight with plan to discharge tomorrow. Charges/Coding Visit Charges Inpatient E&M: 75450 Subs Hosp L1
[2022-09-03] MEDS: Atorvastatin Calcium 20 MG Tablet PO (21:51)
[2022-09-04] VITALS (8 sets, daily range): BP systolic 100–125; BP diastolic 67–87; PULSE 95–115; RESP 16–18; TEMP 36.9–37.3; O2SAT 97–98
[2022-09-04] MEDS: Acetaminophen 500 MG Tablet 1000 MG PO (06:15)
[2022-09-04] MEDS: Aspirin 81 MG TAB.CHEW PO (08:06)
[2022-09-04] MEDS: Famotidine 20 MG Tablet PO (08:06)
[2022-09-04] MEDS: Enoxaparin 40 MG/0.4 ML Syringe SC (08:06)
[2022-09-04] MEDS: Clopidogrel Bisulfate 75 MG Tablet PO (08:07)
--- NOTE | 2022-09-04 15:18 | WOUNDNOTE ---
Pt had been stating the left groin Prevena VAC was alarming off and on. Nursing had placed tegaderm to the groin last evening. patient had been up ambulating in the halls. drape slightly loosened at the left groin/scrotal area. removed the tegaderm and dried area well. placed VAC drape in the skin fold. Good VAC seal noted. no further alarming noted. patient aware that if the VAC alarms once discharged, pt can remove the VAC and cover with dry dressing. Dr Mcdonough had been in and discussed this with patient as well.
--- NOTE | 2022-09-04 16:27 | PCM.PN.SRG ---
Subjective Subjective Improves daily. Ambulating better, pain controlled. Provena on left with air leak today. Otherwise doing well. Objective Data Objective Data Vital Signs: Vital Signs Temp Pulse Resp BP Pulse Ox O2 Del Method O2 Flow Rate 99.1 F 97 18 114/80 97 Room Air 2 09/04/22 13:00 09/04/22 13:00 09/04/22 13:00 09/04/22 13:00 09/04/22 13:00 09/04/22 16:16 09/01/22 19:45 Oxygen Flow Rate (L/min) 2 Oxygen Delivery Method Room Air Weight: 136 lb 14.513 oz Body Mass Index (BMI) 21.4 Intake & Output: Intake and Output for Last 24 Hours 09/02/22 09/03/22 09/04/22 23:59 23:59 23:59 Intake Total 2860 / 2860 780 / 780 Output Total 3040 / 3040 650 / 650 Balance -180 / -180 130 / 130 Lab / Micro Data Result Diagrams: 09/03/22 04:21 09/03/22 04:21 Physical Exam Const alert, oriented x3, no apparent distress and healthy appearing General Appearance: cooperative; Negative for combative or lethargic Orientation / Consciousness: awake Exam Limitations: no limitations HEENT Head and Scalp: normocephalic and atraumatic Eyes EOMs intact bilaterally General Eye: normal appearance of both eyes Neck full ROM General: trachea midline Lymph Lymphatic: Negative for no lymphadenopathy noted Resp normal respiratory effort and no use of accessory muscles Effort and Inspection: Negative for labored, stridor or audible wheezes Cardio regular rate and regular rhythm Peripheral Pulses: posterior tibial pulses present and dorsalis pedis pulses present Back/Spine Cervical Spine: cervical ROM normal Extremity full ROM, normal capillary refill and no clubbing, cyanosis or edema Skin no rashes or lesions noted and no wounds Neuro oriented x3, CN's II-XII intact bilaterally, no focal motor deficits and no sensory deficits noted Psych thought process normal, cooperative, affect normal, speech normal and activity/motor behavior normal Assessment & Plan Assessment/Plan (1) Atherosclerosis of [place] arteries of extremities with intermittent claudication, bilateral legs: PLAN: -POD # 3 left iliac stents, bilateral femoral endart, left to right fem-fem, bilateral sartorious flaps -cont asa, plavix -dc -instructed on Provena removal, will keep until Thursday
--- NOTE | 2022-09-04 16:59 | DS.PCM_ITS ---
Providers Date of Admission: 09/01/22 Date of Discharge: 09/04/22 Primary Care Physician: Dr. Goran Timmons MD Reason For Visit: BILAT FEMORAL ENDARTERECTOMY .... Diagnosis Discharge Diagnosis (1) Atherosclerosis of [place] arteries of extremities with intermittent claudication, bilateral legs: Status: Acute Code(s): I70.213 - Atherosclerosis of [place] arteries of extremities with intermittent claudication, bilateral legs Medications at Discharge Home Medications atorvastatin 20 mg tablet 20 mg PO DAILY CHOLESTEROL 04/15/21 famotidine 20 mg tablet (Pepcid) 20 mg PO BID GERD 08/18/22 aspirin 81 mg chewable tablet 81 mg PO BREAKFAST #0 tabs 09/04/22 clopidogrel 75 mg tablet 75 mg PO DAILY #90 tabs 09/04/22 oxycodone 5 mg capsule 5 mg PO Q8H PRN pain 3 days #9 caps 09/04/22 Hospital Course Operations - (eft iliac stents, bilateral femoral endart, left to right fem-fem, bilateral sartorious flaps) Summary of Care Provided Hospital Course: Patient was routinely admitted following bilateral femoral endarterectomy with left iliac stents, left to right fem-fem, and bilateral sartorius flaps for hemodynamic monitoring. The surgery went as anticipated without complications and with satisfactory result. After surgery patient was noted to have significantly improved blood flow with palpable pulses in his bilateral lower extremities. Patient remained hemodynamically stable throughout his admission. He is ambulating well, with pain well controlled on PO regimen. No signs/symptoms of infection. He will continue with ASA and Plavix at discharge. Bilateral lower extremity incision sites were closed with absorbable sutures, followed by skin glue, and finally covered with Provena dressing. His left Provena dressing had an air leak today which was remedied by wound care nurse. The Provena dressing will stay in place for 7 days at which point he can remove. Patient will follow-up with us in office as scheduled and serial imaging will be ordered at that time. At time of discharge patient was in medically stable condition. Physical Exam Const alert, oriented x3, no apparent distress and healthy appearing General Appearance: cooperative; Negative for combative or lethargic Orientation / Consciousness: awake Exam Limitations: no limitations HEENT Head and Scalp: normocephalic and atraumatic Eyes EOMs intact bilaterally General Eye: normal appearance of both eyes Neck full ROM General: trachea midline Lymph Lymphatic: Negative for no lymphadenopathy noted Resp normal respiratory effort and no use of accessory muscles Effort and Inspection: Negative for labored, stridor or audible wheezes Cardio regular rate and regular rhythm Peripheral Pulses: posterior tibial pulses present and dorsalis pedis pulses present Back/Spine Cervical Spine: cervical ROM normal Extremity full ROM, normal capillary refill and no clubbing, cyanosis or edema Skin no rashes or lesions noted Skin Narrative: Bilateral lower extremity surgical incision sites covered with Provena dressing. Without surrounding erythema, drainage, foul-odor, or swelling. Neuro oriented x3, CN's II-XII intact bilaterally, no focal motor deficits and no sensory deficits noted Psych thought process normal, cooperative, affect normal, speech normal and a ctivity/motor behavior normal Weight / BMI Weight Weight: 136 lb 14.513 oz Body Mass Index (BMI) 21.4 ABG / Lab / Microbiology Data Result Diagrams: 09/03/22 04:21 09/03/22 04:21 D/C Instructions Discharge Diet: No restrictions May shower in (days): 1 May resume sexual activity in: 4-6 weeks Weight Bearing Status: Weight bearing as tolerated Lifting Restricted to (Lbs): 20 Lifting Restrictions: Do not lift greater than 20 pounds for 3 weeks Call your doctor if your incision/area has: Continuous Slow Oozing, Sudden Increased Bleeding, Increased Pain/ Swelling and Foul Smelling Discharge Call your doctor if you observe: Fever of 101 or Higher Additional Dressing/Incision Instructions: The Provena vacuum dressing will stay in place until Friday 09/08 at which point you may remove the device at home as instructed or return to office for removal if you are uncomfortable doing so yourself. Should the Provena dressing lose its seal prior to 7 days and you are unable to restore the seal, you may remove it at that time and cover the incision with dry gauze. You may shower tomorrow. Provena dressing is water proof. Once it is removed, okay to allow soap and water to rinse over incision sites, simply pat dry after. Do not submerge the incision sites for 3 weeks. No baths. Do not lift greater than 20 pounds for 3 weeks. Encourage walking as tolerated. Do not drive if you are taking prescription pain medication. Otherwise, may resume driving in 24 hours if you feel you are able to perform all tasks necessary to do so safely (move to check blind spots, etc). Continue to take aspirin and Plavix daily as prescribed. Return to office as scheduled on 09/23/2022. Please Follow Up With: Pierce Mcdonough MD When: 09/23/2022 Meaningful Use Info Meaningful Use Diagnoses (Choose all that apply): None applicable Discharge Plan Admission Admit Date/Time: 09/01/22 05:32 Primary Reason for Your Visit: Bilateral femoral endarterectomy Attending Provider: Pierce Mcdonough Primary Care Provider: Goran Timmons Discharge Orders/Prescriptions Prescriptions: New clopidogrel 75 mg Tablet 75 mg PO DAILY Qty: 90 2RF aspirin 81 mg Tablet,Chewable 81 mg PO BREAKFAST Qty: 0 0RF oxycodone 5 mg capsule 5 mg PO Q8H PRN (Reason: pain) 3 Days Qty: 9 0RF Continued atorvastatin 20 mg tablet 20 mg PO DAILY Label Comments: Take 1 tablet by mouth once daily. famotidine [Pepcid] 20 mg tablet 20 mg PO BID Discontinued cilostazol 100 mg tablet 100 mg PO BID Label Comments: TAKE 1 TABLET BY MOUTH TWICE DAILY Other Ambulatory Orders: Chest PA and Lateral (Routine) Timeframe: [id number] Facility: [facility] - Location: Radiology, [facility] Ordered By: Dr. Pierce Mcdonough Referrals / Follow Up: Goran Timmons MD [Primary Care Provider] - Disposition Disposition (needs filled in before D/C Order can be placed): Home, Self Care
== END 2022-09-04 18:42 | disposition home or self-care (01) | DRG 253 ==
LOC: ACINP 05:37 → ICU 09-02 08:26 → PCU 09-03 10:09
PROVIDERS: Anesthesiology; Admitting Provider Surgery Trauma Surgery; PCP Family Medicine; Referring Provider Surgery Trauma Surgery; Visit Provider Surgery Trauma Surgery
PROC: 04CK0ZZ Extirpation of Matter from Right Femoral Artery, Open Approach (ICD-10-PCS; principal; 2022-09-01 07:10)
DX: I70.213 Atherosclerosis of native arteries of extremities with intermittent claudication, bilateral legs (principal); I70.92 Chronic total occlusion of artery of the extremities; E78.00 Pure hypercholesterolemia, unspecified; I35.0 Nonrheumatic aortic (valve) stenosis; F17.210 Nicotine dependence, cigarettes, uncomplicated; Z79.02 Long term (current) use of antithrombotics/antiplatelets; Z79.82 Long term (current) use of aspirin; Z79.899 Other long term (current) drug therapy
CPT/HCPCS: 36415; 71045; 76000; 80048; 85025; 85347; 86850; 86900; 86901; 88304; 88311; 93005; 94668; 94762; 97162; 97530; 97802; 99252; 99406; C1769; C1874; C1894; J7040; J7120; C1725; G0463; J2405

== ENCOUNTER → 2022-10-02 | Outpatient (CLI) | payer OTHER, MEDICAID, SELFPAY ==
[2022-10-02 05:59] VITALS: BP 123/78; PULSE 100; RESP 18; TEMP 37.2; O2SAT 98; BMI 20.9
[2022-10-02] MEDS: Lactated Ringers 1,000 ML 15 ML IV (06:02)
--- NOTE | 2022-10-02 06:40 | PCM.HP.BLA ---
History and Physical Date of Admission: 10/02/22 COBY SIMONS, is a 62 M who presents to the office today for further evaluation of abdominal pain, GERD and intermittent diarrhea.? He is also been experiencing 20 pound weight loss he has a past medical history of peripheral vascular disease.? He recently had a CT of the abdomen pelvis that showed significant arthrosclerotic disease of his peripheral artery system with total occlusion of his left iliac artery. ?He is following up with vascular surgery.? He smokes about a pack of cigarettes a day.? He also has blood in the stool.? He has never had a colonoscopy.? He has no history colon polyps or colon cancer.? He also has a past medical history of hypercholesterolemia and is on medical therapy.? He has been on for the past 10 years.? He does get breakthrough symptoms of reflux disease after he coughs.? He does not know if he has a past medical history of COPD he is not on any inhalers or blood thinners. Quality Reporting Tobacco Screening ([facility] 138) Smoking Status: Current every day smoker Assessment and Plan Assessment and Plan (1) Diarrhea: ?Status:?Acute ?Plan: The exact etiology of chronic diarrhea is quite broad as there are many different causes. ?Any process which causes increased water into the stool can produce diarrhea. These typically categorize into inflammatory and secretory diarrhea. ?The prevalence of the different causes will vary depending on the socioeconomic status of the individual. Individuals in a lower socioeconomic status will be more likely to have chronic bacterial, mycobacterial, and parasitic infections causing, whereas mid to high socioeconomic status individuals with chronic diarrhea are more likely to be afflicted with irritable bowel syndrome, inflammatory bowel disease, and malabsorption syndromes.? He will get an excessive biochemical work-up & stool analysis.? Patient will have a colonoscopy however he does not have anyone to come with him for the procedure.? I told him that we can possibly look into doing it without sedation. (2) GERD (gastroesophageal reflux disease): ?Status:?Acute ?Plan: I will continue him on famotidine at this time.? Due to his anemia and history reflux disease he will undergo an upper endoscopy. He was explained alternatives, risk, benefits including not withstanding bleeding, infection, sepsis, perforation, need for emergent surgery . He elected to have an upper endoscopy and colonoscopy. He will have an ASA of 3. Orders Comprehensive Metabolic Profil Today R19.7 - Diarrhea, unspecified ? CRP Today R19.7 - Diarrhea, unspecified ? CBC W/Diff, Automated Today R19.7 - Diarrhea, unspecified ? Erythrocyte Sed Rate Today R19.7 - Diarrhea, unspecified ? Anti-Mitochondrial AB Today R19.7 - Diarrhea, unspecified ? Hepatitis Panel Acute Today R19.7 - Diarrhea, unspecified ? ANCA Today R19.7 - Diarrhea, unspecified ? Anti-Smooth Muscle ABS Today R19.7 - Diarrhea, unspecified ? Celiac Disease Profile Today R19.7 - Diarrhea, unspecified ? Immunoglobulin E Today R19.7 - Diarrhea, unspecified ? LDH Today R19.7 - Diarrhea, unspecified ? MIREYA Comprehensive Panel Today R19.7 - Diarrhea, unspecified ? Calprotectin, Stool Today R19.7 - Diarrhea, unspecified ? Fecal Fat, Qualitative Today R19.7 - Diarrhea, unspecified ? OVA+PARA w/Giardia EIA [id number] Today R19.7 - Diarrhea, unspecified ? CDIFF (PCR) Today R19.7 - Diarrhea, unspecified ? ENTERIC PATHOGEN PANEL STOOL Today K58.9 - Irritable bowel syndrome without diarrhea, R19.7 - Diarrhea, unspecified ? Stool Occult Blood iFOB Today R19.7 - Diarrhea, unspecified ? Stool Lactoferrin/WBC Today K58.9 - Irritable bowel syndrome without diarrhea, R19.7 - Diarrhea, unspecified ? LANIE + Protein Elect, Serum Today R19.7 - Diarrhea, unspecified ? Pancreatic Elastase, Fecal Today R19.7 - Diarrhea, unspecified ? Miscellaneous Lab Procedure Today R19.7 - Diarrhea, unspecified ? I have examined the patient and the H&P has been reviewed. There are no clinical changes since date of exam. The patient was supposed to undergo an upper and lower endoscopy without sedation because he does not have a carrier driver. 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 His pulmonary biochemical work-up was suggestive of Crohn's disease and he has been persistently anemic. I explained to him the risk of him being sedated and not being able to make proper decisions in order to risk of injury for the 24-hour interval after sedation. He agreed prior to sedation to septals risks of possible bodily injury, accident or improper judgment. This was also explained to him by the anesthesiologist.
== END | disposition home or self-care (01) ==
LOC: EN 05:27 → AC 05:29 → PAT 10-29 12:41
PROVIDERS: PCP Family Medicine; Referring Provider Family Medicine; Visit Provider Internal Medicine Gastroenterology
DX: Z53.09 Procedure and treatment not carried out because of other contraindication (principal); R19.7 Diarrhea, unspecified; K21.9 Gastro-esophageal reflux disease without esophagitis
CPT/HCPCS: J7120

== ENCOUNTER → 2022-10-20 | Outpatient (CLI) | payer OTHER, MEDICAID, SELFPAY ==
--- NOTE | 2022-10-20 10:02 | ART_ITS ---
Reason For Study: S/P FEM-FEM BYPASS Procedure A bilateral lower extremity continuous wave Doppler with analog waveform analysis,segmental pressures,and ankle brachial indexes with exercise. PT walked at 2.0 MPH @ 5% incline for 4:30 min. PT requested to walk faster, increased speed to 4.0 MPH @ 5% incline for an additional 2 min. for a total of 6:30 minutes. Left Segmental Pressures Left brachial= 115mmHg. Left thigh = 120mmHg. Left calf = 152mmHg. Left posterior tibial artery = 136mmHg. Left dorsalis pedis artery = 130mmHg. The left posterior tibial artery waveforms are triphasic. The left dorsalis pedis waveforms are triphasic. Right Segmental Pressures Right brachial= 120mmHg. Right thigh = 119mmHg. Right calf = 151mmHg. Right posterior tibial artery = 135mmHg. Right dorsalis pedis artery = 130mmHg. The right posterior tibial artery waveforms are triphasic. The right dorsalis pedis waveforms are triphasic. Indices The right ankle brachial index by the posterior tibial artery is 1.13. The right ankle brachial index by the dorsalis pedis is 1.08. The right ankle brachial index by the posterior tibial artery post exercise is 1.01. The left ankle brachial index by the posterior tibial artery is 1.05. The left dorsalis pedis index post exercise is 1.01. VL/Lower Ext Art Exam w/ Exercise Interpretation Summary Right BRITTNY 1.13, normal. Doppler/PVR waveforms of the right leg normal at rest. Right lower extremity exhibits normal response to exercise. Left BRITTNY 1.08, normal. Doppler/PVR waveforms of the left leg normal at rest. Left lower extremity exhibits normal response to exercise. Ordering Physician: Maddy Schofield Referring Physician: Goran Timmons Performed By: Tiara Chamberlain RVT, RDCS
== END | disposition home or self-care (01) ==
LOC: CVS 10:00
PROVIDERS: PCP Family Medicine; Visit Provider Physician Assistant
DX: I70.213 Atherosclerosis of native arteries of extremities with intermittent claudication, bilateral legs (principal); Z48.812 Encounter for surgical aftercare following surgery on the circulatory system
CPT/HCPCS: 93924

== ENCOUNTER → 2023-03-02 | Outpatient (CLI) | payer OTHER, SELFPAY ==
--- NOTE | 2023-03-02 09:55 | ART_ITS ---
Reason For Study: Claudication Procedure A bilateral lower extremity continuous wave Doppler with analog waveform analysis,segmental pressures,and ankle brachial indexes with exercise. Left Segmental Pressures Left brachial= 115mmHg. Left thigh = 122mmHg. Left calf = 134mmHg. Left posterior tibial artery = 122mmHg. Left dorsalis pedis artery = 110mmHg. Left digit = 100 mmHg. Right Segmental Pressures Right brachial= 135mmHg. Right thigh = 101mmHg. Right calf = 125mmHg. Right posterior tibial artery = 118mmHg. Right dorsalis pedis artery = 117mmHg. Right digit = 127 mmHg. Indices The right ankle brachial index by the posterior tibial artery is 0.87. The right ankle brachial index by the dorsalis pedis is 0.87. The right digital-brachial index is 0.94. The right ankle brachial index by the posterior tibial artery post exercise is 0.82. The left ankle brachial index by the posterior tibial artery is 0.90. The left ankle brachial index by the dorsalis pedis is 0.81. The left digital-brachial index is 0.74. The left posterior tibial artery index post exercise is 0.92. VL/Lower Ext Art Exam w/ Exercise Interpretation Summary Right BRITTNY 0.87, moderate arterial insufficiency. Doppler/PVR waveforms and segm ental pressures reveal [id number] femoral disease. Right lower extremity exhibits no change in response to exercise. Left BRITTNY 0.9, mild arterial insufficiency. Doppler/PVR waveforms and segmental pressures reval [id number] femoral disease. Left lower extremity exhibits no change in response to exercise. Ordering Physician: Maddy Schofield Referring Physician: Goran Timmons Performed By: Bing Hill RDCS/RVT
== END | disposition home or self-care (01) ==
PROVIDERS: PCP Family Medicine; Referring Provider Physician Assistant; Visit Provider Physician Assistant
DX: Z95.828 Presence of other vascular implants and grafts (principal); I70.213 Atherosclerosis of native arteries of extremities with intermittent claudication, bilateral legs; Z48.812 Encounter for surgical aftercare following surgery on the circulatory system
CPT/HCPCS: 93924